=== PATIENT | female | born 1995 | race Caucasian/White ===

== ENCOUNTER 2020-01-24 12:27 | Outpatient (REF) | payer BC, MEDICAID, SELFPAY ==
--- NOTE | 2020-01-24 12:38 | XR_ITS ---
EXAMINATION: XR FOOT, LEFT CLINICAL INFORMATION: Fracture left calcaneus. Follow-up COMPARISON: Left heel 12/13/2019 TECHNIQUE: AP, lateral, and oblique views of the left foot. FINDINGS: Is diffuse osteopenia. The ankle mortise and subtalar joints are normal. There is a calcaneal heel fracture with cement augmentation and metallic plate and screws in satisfactory alignment. The soft tissues are normal. XR/XR foot LT min 3V IMPRESSION: Heeled calcaneal fracture stabilized with lateral metallic plate and screws, unchanged to previous study. There is significant diffuse osteopenia. No soft tissue swelling seen.
== END 2020-01-24 12:28 | disposition home or self-care (01) ==
LOC: HO.HOSX 12:27
PROVIDERS: Visit Provider Physician Assistant
DX: S92.002D Unspecified fracture of left calcaneus, subsequent encounter for fracture with routine healing (principal)
CPT/HCPCS: 73630

== ENCOUNTER → 2020-03-16 12:52 | Outpatient (BNVA) | payer BC, MEDICAID, SELFPAY | PROVIDERS: Visit Provider Orthopaedic Surgery | DX: Z76.89 Persons encountering health services in other specified circumstances (principal) ==

== ENCOUNTER 2020-04-22 15:00 | Outpatient (RCR) | payer BC, SELFPAY ==
--- NOTE | 2020-04-23 10:25 | MHC.PT.DC ---
[facility] [place] Office [place] Office [place] Office [address] Claudia Auguste [address] [phone] F: [phone] F: [phone] F: [phone] F: [phone] Physical Therapy Discharge Report Diagnosis: S/P ORIF for L calcaneum fracture Date of Surgery: 10/23/2019 Date of Evaluation: 12/16/19 Date of Discharge: 04/23/20 Treatments to Date: 23 Cancellations to Date: 2 No Shows to Date: 0 Discharge Status: Achieved Goals Improved Function Discharge Summary: Pt arrived on 04/22/20 with no new complaints. She has improved and is independent with all HEPs. Pt requested d/c today as she is staring a new job next week and will not be able to attend therapy. All exercises were reviewed with pt. Pt advised to return to therapy in case of difficulty with any ADLs and work activities. Electronically signed by: Chelo Butler DPT Please sign and return to therapist. Thank you for your referral.
== END 2020-04-23 10:25 | disposition other institution (70) ==
LOC: HO.PT 15:00
PROVIDERS: Visit Provider Physician Assistant
DX: S92.002D Unspecified fracture of left calcaneus, subsequent encounter for fracture with routine healing (principal)
CPT/HCPCS: 97014; 97110; 97116; 97140; 97530

== ENCOUNTER → 2020-05-25 13:41 | Outpatient (BNVA) | payer BC, MEDICAID, SELFPAY | PROVIDERS: Visit Provider Orthopaedic Surgery ==

== ENCOUNTER 2021-05-01 03:21 | Emergency (ER) | payer OTHER, MEDICAID, SELFPAY ==
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
[2021-05-01 03:24] VITALS: BP 130/80; PULSE 123; RESP 16; TEMP 36.8; O2SAT 96; BMI 22.4
[2021-05-01 04:30] VITALS: BP 113/75; PULSE 113; RESP 16; TEMP 36.2; O2SAT 98
[2021-05-01 06:20] VITALS: BP 113/70; PULSE 105; RESP 14; TEMP 36.8; O2SAT 98
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
[2021-05-01 08:00] VITALS: BP 107/65; PULSE 97; O2SAT 98
[2021-05-01] MEDS: Ibuprofen 800 MG TABLET PO (08:01)
== END 2021-05-01 08:21 | disposition home or self-care (01) ==
PROVIDERS: Emergency Provider Emergency Medicine
DX: S82.115A Nondisplaced fracture of left tibial spine, initial encounter for closed fracture (principal); X50.1XXA Overexertion from prolonged static or awkward postures, initial encounter; Y93.01 Activity, walking, marching and hiking; Y92.410 Unspecified street and highway as the place of occurrence of the external cause; Y99.9 Unspecified external cause status
CPT/HCPCS: 73562; 99284

== ENCOUNTER → 2021-05-03 09:46 | Outpatient (BNVA) | payer OTHER, MEDICAID, SELFPAY | PROVIDERS: Visit Provider Physician Assistant ==

== ENCOUNTER 2021-05-18 13:42 | Outpatient (REF) | payer OTHER, MEDICAID, SELFPAY ==
--- NOTE | ~2021-05-18 | CT_ITS ---
EXAMINATION: CT KNEE WITHOUT CONTRAST, LEFT CLINICAL INFORMATION: Tibial fracture. COMPARISON: Radiographs 05/01/2021 TECHNIQUE: A noncontrast CT of the left knee is performed with sagittal and coronal reformats. This CT examination was performed using dose optimization techniques as appropriate, variously including the following: *Automated exposure control *Adjustment of mA and/or kV according to patient size (this includes techniques or standardized protocols for targeted exams where dose is matched to indication/reason for exam; i.e. extremities or head) *Use of iterative reconstruction technique DLP: 176 mGy-cm FINDINGS: As demonstrated on the radiographs, there are several fracture lines along the tibial spines with minimal displacement. The location is consistent with avulsion by the anterior cruciate ligament. Better demonstrated on the CT is an impaction fracture involving the lateral tibial plateau. A coronal fracture line extends along the junction of the anterior one-third and posterior two-thirds, and a transverse fracture along the physeal scar extending to the posterior cortex where there is mild surface depression measuring 4-5 mm, and slight posterior displacement of posterior cortical fragments. A hairline fracture extends longitudinally along the posterior cortex an additional 1.5 cm. Additionally, there is a hairline fracture in the coronal plane bisecting the medial tibial plateau across the mid aspect, without surface depression or incongruity. There is a moderate joint effusion. CT/CT knee LT wo con IMPRESSION: Proximal tibial fractures, as detailed in the comments, including a slightly depressed impaction fracture at the posterior aspect of the lateral tibial plateau. Additionally, tibial spine fractures indicate avulsion at the anterior cruciate ligament insertion.
== END 2021-05-18 13:43 | disposition home or self-care (01) ==
LOC: HO.CT 13:42
PROVIDERS: Visit Provider Physician Assistant
DX: S82.142A Displaced bicondylar fracture of left tibia, initial encounter for closed fracture (principal)
CPT/HCPCS: 73700

== ENCOUNTER → 2021-05-24 13:39 | Outpatient (BNVA) | payer OTHER, MEDICAID, SELFPAY | PROVIDERS: Visit Provider Physician Assistant ==

== ENCOUNTER 2021-06-18 08:02 | Outpatient (REF) | payer OTHER, MEDICAID, SELFPAY ==
--- NOTE | ~2021-06-18 | XR_ITS ---
EXAMINATION: XR KNEE, LEFT CLINICAL INFORMATION: Pain COMPARISON: Previous x-ray and CT April 2021 TECHNIQUE: 2 views of the left knee. FINDINGS: The bones are osteopenic. There is increased horizontal sclerosis along the lateral posterior proximal tibia corresponding to fracture. Extension to the tibial spine is difficult to appreciate. No other fracture is seen. There is a small joint effusion decreased from previous exam. There is diffuse soft tissue swelling. XR/XR knee LT 2V IMPRESSION: Horizontal linear sclerosis of the posterior lateral corresponding to tibial fracture. Extension to the tibial spine is not well appreciated by x-ray. Osteopenia. Interval decrease in joint effusion. Diffuse soft tissue swelling.
== END 2021-06-18 08:03 | disposition home or self-care (01) ==
LOC: HO.HOSX 08:02
PROVIDERS: Visit Provider Physician Assistant
DX: S82.142D Displaced bicondylar fracture of left tibia, subsequent encounter for closed fracture with routine healing (principal); M25.562 Pain in left knee
CPT/HCPCS: 73560

== ENCOUNTER 2021-08-06 06:00 | Outpatient (REF) | payer OTHER, MEDICAID, SELFPAY ==
--- NOTE | ~2021-08-06 | XR_ITS ---
EXAMINATION: XR KNEE, LEFT CLINICAL INFORMATION: Pain left knee COMPARISON: None TECHNIQUE: Two views of the left knee. FINDINGS: There is loss of tricompartment joint space without periarticular spurring. No bony erosive changes. There are no loose body seen. There is moderate anterior soft tissue swelling. XR/XR knee LT 2V IMPRESSION: There is diffuse anterior knee superficial soft tissue swelling. No visible acute fracture or dislocation seen.
== END 2021-08-06 06:01 | disposition home or self-care (01) ==
LOC: HO.HOSX 06:00
PROVIDERS: Visit Provider Physician Assistant
DX: M25.562 Pain in left knee (principal); S92.002D Unspecified fracture of left calcaneus, subsequent encounter for fracture with routine healing; X58.XXXD Exposure to other specified factors, subsequent encounter; F17.210 Nicotine dependence, cigarettes, uncomplicated
CPT/HCPCS: 73560

== ENCOUNTER 2021-09-08 16:00 | Outpatient (RCR) | payer OTHER, MEDICAID, SELFPAY ==
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
--- NOTE | 2021-09-22 11:31 | MHC.PT.DC ---
[facility] [place] Office [place] Office [place] Office [address] Claudia Auguste [address] [phone] F: [phone] F: [phone] F: [phone] F: [phone] Physical Therapy Discharge Report Diagnosis: displaced bicondylar fx of L tibia Date of Surgery: Date of Evaluation: 07/14/21 Date of Discharge: 09/22/21 Treatments to Date: 12 Cancellations to Date: 0 No Shows to Date: 0 Discharge Status: Achieved Goals Improved Function Independent with HEP Discharge Summary: Appropriate for d/c secondary to meeting goals, I with HEP and improved functional mobility. She is planning on joining a gym as well. Electronically signed by: Ariella Peñaloza PT Please sign and return to therapist. Thank you for your referral.
== END 2021-09-22 11:31 | disposition home or self-care (01) ==
LOC: HO.PT 16:00
PROVIDERS: Visit Provider Physician Assistant
DX: S82.142A Displaced bicondylar fracture of left tibia, initial encounter for closed fracture (principal)
CPT/HCPCS: 97110; 97161; 97530

== ENCOUNTER 2021-11-20 12:30 | Emergency (ER) | payer OTHER, MEDICAID, SELFPAY ==
[2021-11-20 12:34] VITALS: BP 110/76; PULSE 72; RESP 15; TEMP 36.6; O2SAT 96; BMI 21.6
--- NOTE | 2021-11-20 12:58 | ED_ITS ---
HPI - Wound/Laceration General Chief Complaint: Wound/Laceration Stated Complaint: Mouth laceration Time Seen by Provider: 11/20/21 12:45 Source: patient Mode of arrival: ambulatory Limitations: no limitations History of Present Illness HPI narrative: Patient presents emergency department for evaluation of a laceration. She states that she slipped on the stairs striking the front of her mouth on to the stair. She reports that her lower to went into her upper lip causing a laceration. No active bleeding. No pain. She states that she was concerned about infection therefore she came to the emergency department. Denies loss of consciousness with this fall. No dizziness, neck pain, neck stiffness, headache, vision changes. Related Data Previous Rx's Medication Instructions Recorded ibuprofen 800 mg tablet 800 mg PO TID PRN for pain #90 tabs 06/16/20 oxycodone 5 mg capsule 5 mg PO Q8H PRN pain 7 days #21 05/07/21 caps Allergies Allergy/AdvReac Type Severity Reaction Status Date / Time No Known Allergies Allergy Verified 08/06/21 09:59 Review of Systems Review of Systems: Mouth: Positive laceration Yes all other systems are reviewed and are negative [facility] Past Medical History Attestation statement: The following information was validated with the patient. Source: old records reviewed Surgical History S/P foot surgery, left Family History Family History Father No problems noted. Mother No problems noted. Social History Social History Alcohol intake: current Patient Tobacco Use Status: Current everyday Tobacco user Substance Use Type: Marijuana Advance Directives: No Advance Directives Information Provided: No Current occupational status: employed Current occupation: warehouse, right handed Physical Exam Vital Signs: Vital Signs: Last Vital Signs Temp 97.8 F 11/20/21 12:34 Pulse 72 11/20/21 12:34 Resp 15 11/20/21 12:34 BP 110/76 11/20/21 12:34 Pulse Ox 96 11/20/21 12:34 O2 Del Method 11/20/21 12:34 BMI result Body Mass Index 21.6 Appearance: Alert.?Oriented to person, place and time. No acute distress.?Normal affect. Eyes: Pupils equal, round and reactive to light.? ENT: Pharynx normal.? Laceration to the left upper lip mucosa, no active bleeding, does not go entirely through the lip. ? Neck: Normal inspection.? Neck supple.??No midline cervical spine tenderness, step-offs, deformities CVS: Heart sounds normal. Normal heart rate and rhythm.? Pulses normal.?? Respiratory: No respiratory distress.? Lung sounds clear to auscultation bilaterally?? Abdomen: Soft and non-tender. Skin: Skin warm and dry.? Normal skin color.? Extremities: No lower extremity edema.? Neuro: Moves all extremities spontaneously. Sensation intact bilaterally. No motor deficits Ambulates with normal steady gait. Course Course Course Narrative: Patient is a 26-year-old male who presents emergency department for evaluation of a laceration to the oral mucosa of her upper lip. She had no loss of consciousness or significant head injury to suggest requiring head CT, very low concern for ICH/SAH. At this time no signs or symptoms of infection. Advised of saltwater mouth rinses, antiseptic mouthwash as tolerated, Discussed worrisome signs and symptoms that she should be re-evaluated for, reviewed signs of infection, advised outpatient follow-up with her primary care provider as needed. MDM - Wound/Laceration Medical Records Attestation: I reviewed the patient's medical records. Discharge Plan Discharge Clinical Impression: Laceration of mouth Patient Disposition: Home, Self-Care Instructions: Laceration (ED) Additional Instructions: Rinse mouth multiple times a day with warm salt water. You may use mouthwash as tolerated. If you develop increased pain, redness, swelling, drainage/pus, fevers, or chills this should be re-evaluated as these may be signs of infection. Please follow-up with your primary care provider as needed. Return to the emergency department with any new or worsening symptoms or concerns. Prescriptions: No Action ibuprofen 800 mg tablet 800 mg PO TID PRN (Reason: for pain) Qty: 90 0RF oxycodone 5 mg capsule 5 mg PO Q8H PRN (Reason: pain) 7 Days Qty: 21 0RF Rx Instructions: partial filling upon request
== END 2021-11-20 13:15 | disposition home or self-care (01) ==
PROVIDERS: Emergency Provider Emergency Medicine
DX: S01.511A Laceration without foreign body of lip, initial encounter (principal); W10.8XXA Fall (on) (from) other stairs and steps, initial encounter; Y93.9 Activity, unspecified; Y92.039 Unspecified place in apartment as the place of occurrence of the external cause; Y99.9 Unspecified external cause status; F17.200 Nicotine dependence, unspecified, uncomplicated; F12.90 Cannabis use, unspecified, uncomplicated
CPT/HCPCS: 99282

== ENCOUNTER 2022-03-14 20:24 | Day surgery (SDC) | payer OTHER, MEDICAID, SELFPAY ==
--- NOTE | ~2022-03-14 | US_ITS ---
EXAMINATION: US OBSTETRICAL ULTRASOUND CLINICAL INFORMATION: products of conception COMPARISON: None. TECHNIQUE: Transabdominal and endovaginal scanning performed. FINDINGS: The anteverted uterus present measuring 9.8 x 6.0 x 6.6 cm. The endometrium is markedly heterogeneous and thickened measuring 3.9 cm. Retained products of conception are likely given the bulk of abnormality present. The right ovary measures 2.4 x 1.5 x 2.1 cm for a volume of 4.0 mL and appears normal. Left ovary measures 1.9 x 1.4 x 1.9 cm for a volume of 3.0 mL and appears normal No free fluid is seen. US/US OB pelvic and transvaginal IMPRESSION: Mildly heterogeneous thickened endometrium. Retained products of conception cannot be excluded.
--- NOTE | 2022-03-14 20:34 | ED_ITS ---
HPI - Female Genitourinary General Chief complaint: Vaginal Bleeding <Mai Weston CNP - Last Filed: 03/14/22 20:39> Stated complaint: heavy vaginal bleeding missed ab d+c on 03/11 <Mai Weston CNP - Last Filed: 03/14/22 20:39> Time Seen by Provider: 03/14/22 23:31 <Mai Weston CNP - Last Filed: 03/14/22 20:39> Source: patient <Shana Geiger MD - Last Filed: 03/15/22 06:40> Mode of arrival: ambulatory <Shana Geiger MD - Last Filed: 03/15/22 06:40> History of Present Illness HPI Narrative: 26-year-old female who [facility] and states that she was feeling fine until today and then she began developing significant lower abdominal cramping associated with subjective fevers and significant increase in vaginal bleeding that she quantifies as 10-12 pads and states that she feels like it has somewhat slowed down but she is still feeling significant lower abdominal/pelvic discomfort and states she is also experiencing some dysuria as well. <Shana Geiger MD - Last Filed: 03/15/22 06:40> Related Data Home medications: Previous Rx's Medication Instructions Recorded ibuprofen 800 mg tablet 800 mg PO TID PRN for pain #90 tabs 06/16/20 oxycodone 5 mg capsule 5 mg PO Q8H PRN pain 7 days #21 05/07/21 caps <Mai Weston CNP - Last Filed: 03/14/22 20:39> Allergies/Adverse reactions: Allergies Allergy/AdvReac Type Severity Reaction Status Date / Time No Known Allergies Allergy Verified 08/06/21 09:59 <Mai Weston CNP - Last Filed: 03/14/22 20:39> Review of Systems Review of Systems: Pertinent positives and negatives as stated in HPI 10 point review of systems is otherwise negative. <Shana Geiger MD - Last Filed: 03/15/22 06:40> PMFSH Past Medical History Source: nursing notes reviewed <Shana Geiger MD - Last Filed: 03/15/22 06:40> Surgical History: Surgical History S/P foot surgery, left <Mai Weston CNP - Last Filed: 03/14/22 20:39> Family History Family History: Family History Father No problems noted. Mother No problems noted. <Mai Weston CNP - Last Filed: 03/14/22 20:39> Social History Social History: Social History Alcohol intake: current Patient Tobacco Use Status: Current everyday Tobacco user Substance Use Type: Marijuana Advance Directives: No Current occupational status: employed Current occupation: warehouse, right handed <Mai Weston CNP - Last Filed: 03/14/22 20:39> Physical Exam Vital Signs: Vital Signs: Last Vital Signs Temp 98.6 F 03/15/22 05:59 Pulse 93 03/15/22 05:59 Resp 17 03/15/22 05:59 BP 116/58 L 03/15/22 05:59 Pulse Ox 99 03/15/22 05:59 O2 Del Method 03/15/22 05:59 BMI result Body Mass Index 21.6 <Mai Weston CNP - Last Filed: 03/14/22 20:39> Vital Signs: Last Vital Signs Temp 98.6 F 03/15/22 05:59 Pulse 93 03/15/22 05:59 Resp 17 03/15/22 05:59 BP 116/58 L 03/15/22 05:59 Pulse Ox 99 03/15/22 05:59 O2 Del Method 03/15/22 05:59 BMI result Body Mass Index 21.6 VITAL SIGNS: Reviewed. GENERAL: Well developed, well nourished, in no acute distress. HEAD: Normocephalic/atraumatic EYES: PERRLA, EOMI EARS: Ext canals without abnormality OROPHARYNX: no oral lesions noted, posterior pharynx clear LUNGS: Normal breath sounds. No adventitious sounds or accessory muscle use. SpO2<99> CARDIOVASCULAR: Regular rate and rhythm without noted murmurs ABDOMEN: Soft, discomfort in the lower abdomen on palpation without rebound, non-distended with bowel sounds. MUSCULOSKELETAL: No tenderness, deformities, or effusions noted on gross inspection. EXTREMITIES: No cyanosis, clubbing or edema. SKIN: Inspection of the skin reveals no rashes NEUROLOGIC: Alert and oriented x 4. Strength and sensation to light touch were grossly intact x 4. PELVIC EXAM: Cosmetologist Apprentice Desiree, dark thin blood noted in the posterior vaginal vault without clots, when patient asked to cough there is no acute ?gush? blood from cervical os. <Shana Geiger MD - Last Filed: 03/15/22 06:40> Course Course Course Narrative: RME: Patient is a 26-year-old female who presents emergency department for evaluation of heavy vaginal bleeding. states previously 8 weeks , [facility], reports soaking through 3 pads every hour, with clotting. Also complaining abdominal pain and back pain, tactile fever. She has appears fatigued. Vital signs are stable. Ambulatory with a steady gait. No apparent respiratory distress. Plan: Labs, hCG, ultrasound to evaluate for retained POC <Mai Weston CNP - Last Filed: 03/14/22 20:39> RME: Patient is a 26-year-old female who presents emergency depart ment for evaluation of heavy vaginal bleeding. states previously 8 weeks , [facility]2022, reports soaking through 3 pads every hour, with clotting. Also complaining abdominal pain and back pain, tactile fever. She has appears fatigued. Vital signs are stable. Ambulatory with a steady gait. No apparent respiratory distress. Plan: Labs, hCG, ultrasound to evaluate for retained POC I reviewed all laboratory workup which does show a significant drop in hemoglobin when compared to prior, however the significance of this is unclear as I do not know the amount of bleeding may have been lost during the D and C on Monday. HCG is still 6225 and ultrasound most suspicious for retained products of conception. <Shana Geiger MD - Last Filed: 03/15/22 06:40> Reevaluation(s) Reevaluation #1: I consulted with gynecology, Dr. Wagner and provided all information to include HCG and hemoglobin as well as ultrasound findings. I ordered an IV with 1 L of IV fluids. Dr. Wagner recommends a pelvic exam to ascertain whether activ e vaginal bleeding. And possible repeat CBC at 04:00/0 500 if no active vaginal bleeding. <Shana Geiger MD - Last Filed: 03/15/22 06:40> Time: 00:57 <Shana Geiger MD - Last Filed: 03/15/22 06:40> Reevaluation #2: Dr. Wagner equal currently recommending CBC and will obtain at 04:00, also recommends that any change in vital signs or increase in heavy bleeding to inform him. <Shana Geiger MD - Last Filed: 03/15/22 06:40> Time: 01:57 <Shana Geiger MD - Last Filed: 03/15/22 06:40> Reevaluation #3: I had further discussions with Dr. Wagner regarding the follow-up H&H and he states to keep the patient NPO and he will evaluate her at 06:00. <Shana Geiger MD - Last Filed: 03/15/22 06:40> Time: 04:29 <Shana Geiger MD - Last Filed: 03/15/22 06:40> Additional Reevaluation(s): 0600: Dr. Wagner evaluated the patient and has decided to take the patient to the OR for suction D&C. <Shana Geiger MD - Last Filed: 03/15/22 06:40> Medications Administered Discontinued Medications Generic Name Dose Route Start Last Admin Trade Name Freq PRN Reason Stop Dose Admin Sodium Chloride 1,000 mls @ 999 mls/hr 03/15/22 01:00 03/15/22 02:24 Ns IV 03/15/22 02:00 Infused .Q1H1M LEATHA Infusion Piperacillin Sod/Tazobactam 50 mls @ 100 mls/hr 03/15/22 02:18 03/15/22 03:39 Sod 3.375 gm/ Sodium Chloride IV 03/15/22 02:47 Infused ONCE ONE Infusion <Mai Weston CNP - Last Filed: 03/14/22 20:39> Medications Administered Discontinued Medications Generic Name Dose Route Start Last Admin Trade Name Freq PRN Reason Stop Dose Admin Sodium Chloride 1,000 mls @ 999 mls/hr 03/15/22 01:00 03/15/22 02:24 Ns IV 03/15/22 02:00 Infused .Q1H1M LEATHA Infusion Piperacillin Sod/Tazobactam 50 mls @ 100 mls/hr 03/15/22 02:18 03/15/22 03:39 Sod 3.375 gm/ Sodium Chloride IV 03/15/22 02:47 Infused ONCE ONE Infusion <Shana Geiger MD - Last Filed: 03/15/22 06:40> Medical Decision Making Lab Data Result Diagrams: : 03/15/22 04:09 03/14/22 21:29 <Mai Weston CNP - Last Filed: 03/14/22 20:39> Labs: Lab Results 03/14/22 03/14/22 03/15/22 Range/Units 21:29 21:29 00:21 WBC 12.0 H (4.8-10.8) X10*3/uL RBC 3.42 L (4.20-5.50) X10*6/uL Hgb 11.0 L (12.0-16.0) g/dl Hct 32.4 L (37.0-47.0) % MCV 94.7 (80.0-98.0) fL MCH 32.2 (27.0-33.0) pg MCHC 34.0 (31.0-35.0) g/dl RDW 12.5 (11.0-16.0) % Plt Count 200 (160-400) X10*3/uL MPV 9.6 (9.4-12.3) fL Immature Gran % (Auto) 0.3 (0.0-0.4) % Neut % (Auto) 79.3 H (45-73) % Lymph % (Auto) 13.3 L (20-40) % Schleicher % (Auto) 5.7 (2-11) % Eos % (Auto) 1.1 (0-4) % Baso % (Auto) 0.3 (0-2) % Lymph # (Auto) 1.6 (1.2-4.9) X10*3/uL Schleicher # (Auto) 0.7 (0.1-1.2) X10*3/uL Eos # (Auto) 0.1 (0.0-0.4) X10*3/uL Baso # (Auto) 0.0 (0.0-0.2) X10*3/uL Abs Immat Gran (auto) 0.04 H (0.00-0.03) X10*3/uL Absolute Neuts (auto) 9.5 H (2.0-8.3) x10*3/uL Absolute Nucleated RBC 0.000 (0.0-0.012) X10*3/uL Nucleated RBC % (auto) 0.0 (0.0-0.2) /100WBC Sodium 139 (135-145) mmol/L Potassium 4.0 (3.3-5.1) mmol/L Chloride 107 (96-108) mmol/L Carbon Dioxide 24 (22-29) mmol/L Anion Gap 12 (12-20) BUN 10 (9-16) mg/dL Creatinine 0.62 (0.5-1.4) mg/dL Estim Creat Clear Calc 122.6 Estimated GFR > 60 Random Glucose 98 (60-115) mg/dL Lactic Acid (0.5-2.0) mmol/L Calcium 9.2 (8.4-10.2) mg/dL Total Bilirubin 0.4 (0.0-1.0) mg/dL AST 12 (5-31) U/L ALT 6 (0-31) U/L Alkaline Phosphatase 81 (39-117) U/L Total Protein 6.3 L (6.5-8.0) g/dL Albumin 4.2 (3.5-5.0) g/dL Beta HCG, Quant 6225 mIU/mL Urine Color RED Urine Appearance Cloudy Urine pH 8.0 (5.0-9.0) Ur Specific [place] 1.020 (1.005-1.025) Urine Protein 100 (2+) H (Neg-Trace) mg/dL Urine Glucose (UA) Negative (Negative) mg/dL Urine Ketones Trace (Negative) mg/dL Urine Blood Large (3+) H (Negative) Urine Nitrite Positive H (Negative) Ur Leukocyte Esterase Moderate (2+) H (Negative) Urine RBC >20 H (0-2) /HPF Urine WBC >50 H (0-5) /HPF Ur Squamous Epith Cells 3-5 (0-2) /HPF Urine Bacteria 1+ (None Seen) Hyaline Casts 0-2 (0-2) /LPF Blood Type Antibody Screen 03/15/22 03/15/22 03/15/22 Range/Units 01:03 01:38 04:09 WBC (4.8-10.8) X10*3/uL RBC (4.20-5.50) X10*6/uL Hgb 10.2 L (12.0-16.0) g/dl Hct 30.2 L (37.0-47.0) % MCV (80.0-98.0) fL MCH (27.0-33.0) pg MCHC (31.0-35.0) g/dl RDW (11.0-16.0) % Plt Count (160-400) X10*3/uL MPV (9.4-12.3) fL Immature Gran % (Auto) (0.0-0.4) % Neut % (Auto) (45-73) % Lymph % (Auto) (20-40) % Schleicher % (Auto) (2-11) % Eos % (Auto) (0-4) % Baso % (Auto) (0-2) % Lymph # (Auto) (1.2-4.9) X10*3/uL Schleicher # (Auto) (0.1-1.2) X10*3/uL Eos # (Auto) (0.0-0.4) X10*3/uL Baso # (Auto) (0.0-0.2) X10*3/uL Abs Immat Gran (auto) (0.00-0.03) X10*3/uL Absolute Neuts (auto) (2.0-8.3) x10*3/uL Absolute Nucleated RBC (0.0-0.012) X10*3/uL Nucleated RBC % (auto) (0.0-0.2) /100WBC Sodium (135-145) mmol/L Potassium (3.3-5.1) mmol/L Chloride (96-108) mmol/L Carbon Dioxide (22-29) mmol/L Anion Gap (12-20) BUN (9-16) mg/dL Creatinine (0.5-1.4) mg/dL Estim Creat Clear Calc Estimated GFR Random Glucose (60-115) mg/dL Lactic Acid 0.7 (0.5-2.0) mmol/L Calcium (8.4-10.2) mg/dL Total Bilirubin (0.0-1.0) mg/dL AST (5-31) U/L ALT (0-31) U/L Alkaline Phosphatase (39-117) U/L Total Protein (6.5-8.0) g/dL Albumin (3.5-5.0) g/dL Beta HCG, Quant mIU/mL Urine Color Urine Appearance Urine pH (5.0-9.0) Ur Specific [place] (1.005-1.025) Urine Protein (Neg-Trace) mg/dL Urine Glucose (UA) (Negative) mg/dL Urine Ketones (Negative) mg/dL Urine Blood (Negative) Urine Nitrite (Negative) Ur Leukocyte Esterase (Negative) Urine RBC (0-2) /HPF Urine WBC (0-5) /HPF Ur Squamous Epith Cells (0-2) /HPF Urine Bacteria (None Seen) Hyaline Casts (0-2) /LPF Blood Type O Positive Antibody Screen NEGATIVE <Mai Weston CNP - Last Filed: 03/14/22 20:39> Lab Results 03/14/22 03/14/22 03/15/22 Range/Units 21:29 21:29 00:21 WBC 12.0 H (4.8-10.8) X10*3/uL RBC 3.42 L (4.20-5.50) X10*6/uL Hgb 11.0 L (12.0-16.0) g/dl Hct 32.4 L (37.0-47.0) % MCV 94.7 (80.0-98.0) fL MCH 32.2 (27.0-33.0) pg MCHC 34.0 (31.0-35.0) g/dl RDW 12.5 (11.0-16.0) % Plt Count 200 (160-400) X10*3/uL MPV 9.6 (9.4-12.3) fL Immature Gran % (Auto) 0.3 (0.0-0.4) % Neut % (Auto) 79.3 H (45-73) % Lymph % (Auto) 13.3 L (20-40) % Schleicher % (Auto) 5.7 (2-11) % Eos % (Auto) 1.1 (0-4) % Baso % (Auto) 0.3 (0-2) % Lymph # (Auto) 1.6 (1.2-4.9) X10*3/uL Schleicher # (Auto) 0.7 (0.1-1.2) X10*3/uL Eos # (Auto) 0.1 (0.0-0.4) X10*3/uL Baso # (Auto) 0.0 (0.0-0.2) X10*3/uL Abs Immat Gran (auto) 0.04 H (0.00-0.03) X10*3/uL Absolute Neuts (auto) 9.5 H (2.0-8.3) x10*3/uL Absolute Nucleated RBC 0.000 (0.0-0.012) X10*3/uL Nucleated RBC % (auto) 0.0 (0.0-0.2) /100WBC Sodium 139 (135-145) mmol/L Potassium 4.0 (3.3-5.1) mmol/L Chloride 107 (96-108) mmol/L Carbon Dioxide 24 (22-29) mmol/L Anion Gap 12 (12-20) BUN 10 (9-16) mg/dL Creatinine 0.62 (0.5-1.4) mg/dL Estim Creat Clear Calc 122.6 Estimated GFR > 60 Random Glucose 98 (60-115) mg/dL Lactic Acid (0.5-2.0) mmol/L Calcium 9.2 (8.4-10.2) mg/dL Total Bilirubin 0.4 (0.0-1.0) mg/dL AST 12 (5-31) U/L ALT 6 (0-31) U/L Alkaline Phosphatase 81 (39-117) U/L Total Protein 6.3 L (6.5-8.0) g/dL Albumin 4.2 (3.5-5.0) g/dL Beta HCG, Quant 6225 mIU/mL Urine Color RED Urine Appearance Cloudy Urine pH 8.0 (5.0-9.0) Ur Specific [place] 1.020 (1.005-1.025) Urine Protein 100 (2+) H (Neg-Trace) mg/dL Urine Glucose (UA) Negative (Negative) mg/dL Urine Ketones Trace (Negative) mg/dL Urine Blood Large (3+) H (Negative) Urine Nitrite Positive H (Negative) Ur Leukocyte Esterase Moderate (2+) H (Negative) Urine RBC >20 H (0-2) /HPF Urine WBC >50 H (0-5) /HPF Ur Squamous Epith Cells 3-5 (0-2) /HPF Urine Bacteria 1+ (None Seen) Hyaline Casts 0-2 (0-2) /LPF Blood Type Antibody Screen 03/15/22 03/15/22 03/15/22 Range/Units 01:03 01:38 04:09 WBC (4.8-10.8) X10*3/uL RBC (4.20-5.50) X10*6/uL Hgb 10.2 L (12.0-16.0) g/dl Hct 30.2 L (37.0-47.0) % MCV (80.0-98.0) fL MCH (27.0-33.0) pg MCHC (31.0-35.0) g/dl RDW (11.0-16.0) % Plt Count (160-400) X10*3/uL MPV (9.4-12.3) fL Immature Gran % (Auto) (0.0-0.4) % Neut % (Auto) (45-73) % Lymph % (Auto) (20-40) % Schleicher % (Auto) (2-11) % Eos % (Auto) (0-4) % Baso % (Auto) (0-2) % Lymph # (Auto) (1.2-4.9) X10*3/uL Schleicher # (Auto) (0.1-1.2) X10*3/uL Eos # (Auto) (0.0-0.4) X10*3/uL Baso # (Auto) (0.0-0.2) X10*3/uL Abs Immat Gran (auto) (0.00-0.03) X10*3/uL Absolute Neuts (auto) (2.0-8.3) x10*3/uL Absolute Nucleated RBC (0.0-0.012) X10*3/uL Nucleated RBC % (auto) (0.0-0.2) /100WBC Sodium (135-145) mmol/L Potassium (3.3-5.1) mmol/L Chloride (96-108) mmol/L Carbon Dioxide (22-29) mmol/L Anion Gap (12-20) BUN (9-16) mg/dL Creatinine (0.5-1.4) mg/dL Estim Creat Clear Calc Estimated GFR Random Glucose (60-115) mg/dL Lactic Acid 0.7 (0.5-2.0) mmol/L Calcium (8.4-10.2) mg/dL Total Bilirubin (0.0-1.0) mg/dL AST (5-31) U/L ALT (0-31) U/L Alkaline Phosphatase (39-117) U/L Total Protein (6.5-8.0) g/dL Albumin (3.5-5.0) g/dL Beta HCG, Quant mIU/mL Urine Color Urine Appearance Urine pH (5.0-9.0) Ur Specific [place] (1.005-1.025) Urine Protein (Neg-Trace) mg/dL Urine Glucose (UA) (Negative) mg/dL Urine Ketones (Negative) mg/dL Urine Blood (Negative) Urine Nitrite (Negative) Ur Leukocyte Esterase (Negative) Urine RBC (0-2) /HPF Urine WBC (0-5) /HPF Ur Squamous Epith Cells (0-2) /HPF Urine Bacteria (None Seen) Hyaline Casts (0-2) /LPF Blood Type O Positive Antibody Screen NEGATIVE <Shana Geiger MD - Last Filed: 03/15/22 06:40> Critical Care Time Critical Care Time Critical Care Time: Yes <Shana Geiger MD - Last Filed: 03/15/22 06:40> Total Critical Care Time: 45 <Shana Geiger MD - Last Filed: 03/15/22 06:40> Attestation: I personally attest to this time spent taking care of the patient. <Shana Geiger MD - Last Filed: 03/15/22 06:40> Discharge Plan Discharge Clinical Impression: Retained products of conception following , Vaginal bleeding <Mai Weston CNP - Last Filed: 03/14/22 20:39> Patient Disposition: Admitted As Inpatient <Mai Weston CNP - Last Filed: 03/14/22 20:39> Prescriptions: No Action ibuprofen 800 mg tablet 800 mg PO TID PRN (Reason: for pain) Qty: 90 0RF oxycodone 5 mg capsule 5 mg PO Q8H PRN (Reason: pain) 7 Days Qty: 21 0RF Rx Instructions: partial filling upon request <Mai Weston CNP - Last Filed: 03/14/22 20:39>
[2022-03-14 20:35] VITALS: BP 108/69; PULSE 78; RESP 18; TEMP 36.4; O2SAT 98; BMI 21.6
[2022-03-14 21:43] LABS: MANUAL DIFF FLAG NO
[2022-03-14 21:44] LABS: Basophils Percent Auto 0.3 % (0-2); Eosinophils Absolute Auto 0.1 X10*3/uL (0.0-0.4); Eosinophils Percent Auto 1.1 % (0-4); Hematocrit 32.4 % (37.0-47.0); Imm Gran Abs Auto 0.04 X10*3/uL (0.00-0.03); Imm Gran Pct Auto 0.3 % (0.0-0.4); Lymphocytes Absolute Auto 1.6 X10*3/uL (1.2-4.9); Lymphocytes Percent Auto 13.3 % (20-40); Mean Corpuscular Hemoglobin 32.2 pg (27.0-33.0); Mean Corpuscular Volume 94.7 fL (80.0-98.0); Mean Platelet Volume 9.6 fL (9.4-12.3); Monocytes Absolute Auto 0.7 X10*3/uL (0.1-1.2); Monocytes Percent Auto 5.7 % (2-11); Neutrophils Absolute Auto 9.5 x10*3/uL (2.0-8.3); Neutrophils Percent Auto 79.3 % (45-73); Platelet Count 200 X10*3/uL (160-400); Red Blood Count 3.42 X10*6/uL (4.20-5.50); Red Cell Distribution Width 12.5 % (11.0-16.0)
[2022-03-14 22:01] LABS: Alanine Aminotransferase 6 U/L (0-31); Albumin Level 4.2 g/dL (3.5-5.0); Alkaline Phosphatase 81 U/L (39-117); Anion Gap 12 (12-20); Aspartate Amino Transferase 12 U/L (5-31); Bilirubin Total 0.4 mg/dL (0.0-1.0); Blood Urea Nitrogen 10 mg/dL (9-16); Calcium 9.2 mg/dL (8.4-10.2); Carbon Dioxide 24 mmol/L (22-29); Chloride 107 mmol/L (96-108); Creatinine Clr Calc Pharmacy 122.6; Estimated Glomerular Filt Rate > 60; Glucose Random 98 mg/dL (60-115); Sodium 139 mmol/L (135-145); Total Protein 6.3 g/dL (6.5-8.0)
[2022-03-14 23:23] VITALS: BP 110/68; PULSE 97; RESP 17; TEMP 37; O2SAT 99
[2022-03-15] VITALS (9 sets, daily range): BP systolic 108–121; BP diastolic 54–73; PULSE 82–102; RESP 16–27; TEMP 36.3–37.2; O2SAT 95–100
[2022-03-15 00:19] LABS: HCG Quantitative 6225 mIU/mL
[2022-03-15 00:38] LABS: Appearance Urine Cloudy; Color Urine RED; Glucose Urine UA Negative (Negative); Leukocyte Esterase Urine Moderate (2+) (Negative); Nitrite Urine Positive (Negative); UMIC TRIGGER UACC YES; Urine Blood Large (3+) (Negative); Urine Ketones Trace mg/dL (Negative); Urine Protein 100 (2+) mg/dL (Neg-Trace)
[2022-03-15 00:41] LABS: Hyaline Casts Urine 0-2 /LPF (0-2); RBC Urine >20 /HPF (0-2); UACC Culture Trigger YES; WBC Urine >50 /HPF (0-5)
[2022-03-15 00:45] LABS: Bacteria Urine 1+ (None Seen)
[2022-03-15] MEDS: 0.9 % Sodium Chloride 1,000 ML 999 ML IV (01:12)
--- NOTE | 2022-03-15 01:18 | PM.GYNCN ---
[employer] - CN: HPI Data of Consult Consult date: 03/15/22 Primary Care Provider: Unknown Physician Consult Narrative Narrative: I was consulted on Rosalina Peres who is a 26 year old female presented to the emergency room with increase in vaginal bleeding postop day 5 from [facility] associated with lower abdominal cramping; the patient was treated with medical termination at 8 weeks of gestation 4 days prior, but did not have any vaginal bleeding or passage of products of conception so she underwent suction D&C on 03/11. Blood type is O-positive. hCG 6225 In addition the patient has been having dysuria cc:: CC: OB [facility] Past Medical History Medical History (Updated 03/15/22 @ 08:51 by Chip Wagner MD) Family History Family History Father No problems noted. Mother No problems noted. Surgical History Surgical History (Updated 03/15/22 @ 07:13 by Diane Belle) H/O hand surgery S/P foot surgery, left Social History Social History (Updated 03/15/22 @ 08:43 by Bailee Murcia MD) Alcohol intake: current Alcohol intake frequency: a few times a month Patient Tobacco Use Status: Current everyday Tobacco user Use of substances other than those prescribed or required for medical reasons: Yes Substance Use Type: Marijuana Substance Use Frequency: Daily Last Used Substance: Hours (ago) Are you DNR?: No Advance Directives: No Current occupational status: employed Current occupation: warehouse, right handed Meds Allergies Allergy/AdvReac Type Severity Reaction Status Date / Time No Known Allergies Allergy Verified 03/15/22 07:13 Active Medications: Current Medications Sodium Chloride (Ns) 1,000 mls @ 999 mls/hr IV .Q1H1M LEATHA Stop: 03/15/22 02:00 Last Admin: 03/15/22 01:12 Dose: 999 mls/hr [employer] Physical Exam Vitals Vital signs: Temp Pulse Resp BP Pulse Ox O2 Del Method 98.6 F 97 17 110/68 99 03/14/22 23:23 03/14/22 23:23 03/14/22 23:23 03/14/22 23:23 03/14/22 23:23 03/14/22 23:23 BMI result Body Mass Index 21.6 Abdomen Auscultation/Inspection/Palpation: Normal bowel sounds, Soft, Non-distended and No tenderness Female Genitalia (Pelvic) Bladder/Urethra: Normal meatus Vulva: No lesions Cervix: Grossly normal Uterus: Normal size and Nontender Adnexa/Parametria: Adnexal Tenderness: None, Adnexal Mass: None, Parametrial Tenderness: None and Parametrial Mass: None Additional Comments: Blood per vagina, open cervix [employer] - Results Labs CBC & Chem 7: 03/15/22 04:09 03/14/22 21:29 Labs: Short CBC 03/14/22 Range/Units 21:29 WBC 12.0 H (4.8-10.8) X10*3/uL Hgb 11.0 L (12.0-16.0) g/dl Hct 32.4 L (37.0-47.0) % Plt Count 200 (160-400) X10*3/uL BMP 03/14/22 21:29 Sodium 139 Potassium 4.0 Chloride 107 Carbon Dioxide 24 BUN 10 Creatinine 0.62 Calcium 9.2 Liver Function 03/14/22 Range/Units 21:29 Total Bilirubin 0.4 (0.0-1.0) mg/dL AST 12 (5-31) U/L ALT 6 (0-31) U/L Alkaline Phosphatase 81 (39-117) U/L Albumin 4.2 (3.5-5.0) g/dL Urine 03/15/22 Range/Units 00:21 Urine Color RED Urine Appearance Cloudy Urine pH 8.0 (5.0-9.0) Ur Specific [place] 1.020 (1.005-1.025) Urine Protein 100 (2+) H (Neg-Trace) mg/dL Urine Glucose (UA) Negative (Negative) mg/dL Imaging Venous US: Radiologist's impression: ITS Impressions Pelvic/Transvag US 03/14/22 21:20 IMPRESSION: Mildly heterogeneous thickened endometrium. Retained products of conception cannot be excluded. Assessment and Plan (1) Retained products of conception following : Status: Acute GC and chlamydia with BV panel and Trichomonas collected. Discussed with the patient the result of the ultrasound showing thickened endometrium , retained products of conception cannot be excluded, in addition explained to the patient her clinical situation with vaginal bleeding and pelvic cramping, hemoglobin drop , all pointing towards possibility of retained products of conception; the options of the treatment were discussed with the patient including medical treatment , suction D&C, all pros, cons, risks and benefits were discussed with the patient and the patient the decided to go ahead with Suction D&C. so a more detailed discussion about the procedure was carried on with the patient including the technique, risks including but not limited to : bleeding, infection, uterine perforation, injury to blood vessels, bowels, ureters, bladder, possible need for blood transfusion with all its risks ( HIV, Hep b or C, anaphylaxis reactions), possible need for laparoscopy, laparotomy, or hysterectomy, possible , thromboembolic events, possibility of a negative impact on future fertility because of scar tissue development inside the uterus; alternatives of this option were discussed with the patient including but not limited to, medical termination of or doing nothing. The patient decided to go ahead with Suction D&C and signed the consent. All questions answered, the patient verbalized understanding and agreed with the plan. Doxycycline 200 mg p.o. preop given to the patient. Ultrasound notified. Type and screen sent. Instructions given the patient to schedule a 2 week postoperative appointment. This note was generated with a voice recognition program. Some errors may have been overlooked during the review of this note. Sometimes these errors may affect the content or meaning of a given sentence. (2) UTI (urinary tract infection): Status: Acute Urine culture sent will treat with Macrobid 100 mg p.o. b.i.d. for 7 days. Instructions given to patient to call in case of fever above 100.4, flank pain, nausea or vomiting or any other concerns Plan 00:59 reviewed [facility] texts and called the emergency room and discussed the case on the phone with Dr. Vásquez. Recommended the following: Perform a Pelvic exam in an effort to evaluate the amount of vaginal bleeding; if there is evidence of active vaginal bleeding to let me know, in order to call the OR team/anesthesia and proceed with suction D&C immediately. If there is no evidence of active vaginal bleeding on pelvic exam, to keep the patient NPO and for observation for few hours and repeat H&H , if there is any increase in vaginal bleeding, change in vital signs or significant drop in H&H during the observation period, will proceed with suction D&C then. Otherwise will re-evaluate in a.m. Time Spent With Patient Time: Total time managing care of this patient today ____ minutes.
[2022-03-15 01:29] LABS: Lactic Acid 0.7 mmol/L (0.5-2.0)
--- NOTE | 2022-03-15 01:38 | PC.NURSE ---
patient refusing to be poked another time for blood cultures. she is agreeable to one set being pulled off her IV. MD Geiger made awrae.
[2022-03-15] MEDS: Piperacillin Sodium/Tazobactam 3.375 GM in 0.9 % Sodium Chloride 50 ML IV (02:37)
[2022-03-15 04:14] LABS: Hematocrit 30.2 % (37.0-47.0); Hemoglobin 10.2 g/dl (12.0-16.0)
--- NOTE | 2022-03-15 06:00 | MHC.EDTECH ---
pt is resting a little teary eyed, nervous bout everything going on, i help her when it was time to draw hold her hand she cries when blood needs to be taken, a little comfort for her and a little encouragement to help her through it.. she appreciated it alot.. her vitals were taken she is just relaxing now
--- NOTE | 2022-03-15 06:20 | PC.NURSE ---
MD Wagner bedside for exam
[2022-03-15] MEDS: Doxycycline Monohydrate 100 MG CAPSULE 200 MG PO (07:00)
--- NOTE | 2022-03-15 07:14 | PHA.MEDREC ---
Pharmacy Consult ? Medication Reconciliation Pharmacy has completed the medication reconciliation.
--- NOTE | 2022-03-15 07:23 | P.CONAN_ITS ---
HPI - Anesthesia Eval Consult details Narrative: 26yo female patient for suction, D&C PMFSH Active Problems Active Problems: All Active Problems (Updated 03/15/22 @ 07:13 by Diane Belle) Calcaneus fracture, left (Acute) Fracture of left calcaneus with routine healing (Acute) Otitis media (Acute) Tibial plateau fracture, left (Acute) Vaginal bleeding (Acute) Retained products of conception following (Acute) Vaginal bleeding (Acute) Past Medical History Medical History (Updated 03/15/22 @ 07:13 by Diane Belle) Family History Family History Father No problems noted. Mother No problems noted. Family history of problems with anesthesia: No Surgical History Surgical History (Updated 03/15/22 @ 07:13 by Diane Belle) H/O hand surgery S/P foot surgery, left History of Problems with Anesthesia: No Social History Social History (Updated 03/15/22 @ 08:43 by Bailee Murcia MD) Alcohol intake: current Alcohol intake frequency: a few times a month Patient Tobacco Use Status: Current everyday Tobacco user Use of substances other than those prescribed or required for medical reasons: Yes Substance Use Type: Marijuana Substance Use Frequency: Daily Last Used Substance: Hours (ago) Are you DNR?: No Advance Directives: No Current occupational status: employed Current occupation: [employer], right handed [employer] Allergies Allergy/AdvReac Type Severity Reaction Status Date / Time No Known Allergies Allergy Verified 03/15/22 07:13 Exam Exam Date and Time: March 15, 2022 0723 Height,Weight and Vital Signs: Height 5 ft 5 in Weight 58.967 kg Last Vital Signs Temp 98.6 F 03/15/22 05:59 Pulse 93 03/15/22 05:59 Resp 17 03/15/22 05:59 BP 116/58 L 03/15/22 05:59 Pulse Ox 99 03/15/22 05:59 O2 Del Method 03/15/22 05:59 Vital Signs Temp Pulse Resp BP Pulse Ox O2 Del Method 03/15/22 07:38 97.3 F 88 16 111/65 98 Room Air 03/15/22 05:59 98.6 F 93 17 116/58 L 99 Room Air 03/15/22 04:22 98.3 F 89 17 115/54 L 98 Room Air 03/15/22 01:57 97.6 F 82 18 110/69 95 Room Air 03/14/22 23:23 98.6 F 97 17 110/68 99 Room Air 03/14/22 20:35 97.6 F 78 18 108/69 98 Room Air Pertinent Lab Results Pertinent Lab Results: Laboratory Tests 03/14/22 03/14/22 03/15/22 21:29 21:29 00:21 WBC 12.0 H RBC 3.42 L Hgb 11.0 L Hct 32.4 L MCV 94.7 MCH 32.2 MCHC 34.0 RDW 12.5 Plt Count 200 MPV 9.6 Immature Gran % (Auto) 0.3 Neut % (Auto) 79.3 H Lymph % (Auto) 13.3 L [place] % (Auto) 5.7 Eos % (Auto) 1.1 Baso % (Auto) 0.3 Lymph # (Auto) 1.6 [place] # (Auto) 0.7 Eos # (Auto) 0.1 Baso # (Auto) 0.0 Abs Immat Gran (auto) 0.04 H Absolute Neuts (auto) 9.5 H Absolute Nucleated RBC 0.000 Nucleated RBC % (auto) 0.0 Sodium 139 Potassium 4.0 Chloride 107 Carbon Dioxide 24 Anion Gap 12 BUN 10 Creatinine 0.62 Estim Creat Clear Calc 122.6 Estimated GFR > 60 Random Glucose 98 Lactic Acid Calcium 9.2 Total Bilirubin 0.4 AST 12 ALT 6 Alkaline Phosphatase 81 Total Protein 6.3 L Albumin 4.2 Beta HCG, Quant 6225 Urine Color RED Urine Appearance Cloudy Urine pH 8.0 Ur Specific [place] 1.020 Urine Protein 100 (2+) H Urine Glucose (UA) Negative Urine Ketones Trace Urine Blood Large (3+) H Urine Nitrite Positive H Ur Leukocyte Esterase Moderate (2+) H Urine RBC >20 H Urine WBC >50 H Ur Squamous Epith Cells 3-5 Urine Bacteria 1+ Hyaline Casts 0-2 Blood Type Antibody Screen 03/15/22 03/15/22 03/15/22 01:03 01:38 04:09 WBC RBC Hgb 10.2 L Hct 30.2 L MCV MCH MCHC RDW Plt Count MPV Immature Gran % (Auto) Neut % (Auto) Lymph % (Auto) [place] % (Auto) Eos % (Auto) Baso % (Auto) Lymph # (Auto) [place] # (Auto) Eos # (Auto) Baso # (Auto) Abs Immat Gran (auto) Absolute Neuts (auto) Absolute Nucleated RBC Nucleated RBC % (auto) Sodium Potassium Chloride Carbon Dioxide Anion Gap BUN Creatinine Estim Creat Clear Calc Estimated GFR Random Glucose Lactic Acid 0.7 Calcium Total Bilirubin AST ALT Alkaline Phosphatase Total Protein Albumin Beta HCG, Quant Urine Color Urine Appearance Urine pH Ur Specific [place] Urine Protein Urine Glucose (UA) Urine Ketones Urine Blood Urine Nitrite Ur Leukocyte Esterase Urine RBC Urine WBC Ur Squamous Epith Cells Urine Bacteria Hyaline Casts Blood Type O Positive Antibody Screen NEGATIVE Airway Mallampati Class: II TM Dist: >3cm Neck ROM: Full Loose/Missing/Broken Teeth: No (Denies broken, loose, missing teeth) Heart: RRR Lungs: CTAB Assessment and Plan Assessment Anesthesia Assessment: Anesthesia Plan Discussed and Chart Reviewed Final Anesthetic Review Family History of Problems with Anesthesia: No History of Problems with Anesthesia: No NPO: Yes ASA Class: II and Emergency Final Preanesthetic Review: No Changes in Pt Med Stat, Meds/Allgs Chart Reviewed, Consent Obtained/Reviewed and Anes Risks/Benef Reviewed Patient Risk: Intermediate Procedure Risk: Low Assessment/Block/Sedation in SS: Assess/Block/Sedation-SS Anesthetic Plan Anesthetic Plan: GA Disposition: Standard PACU
[2022-03-15] MEDS: ondansetron HCL 4 MG/2 ML VIAL IVPUSH (07:31)
[2022-03-15] MEDS: Metoclopramide HCl 10 MG/2 ML VIAL IVPUSH (07:32)
[2022-03-15] MEDS: Lactated Ringers 1,000 ML 100 ML IVCONT (07:34)
--- NOTE | 2022-03-15 08:51 | P.BOP_ITS ---
Brief Operative Note Date of Service: 03/15/22 Pre-op diagnosis: Retained products of conception Post-op diagnosis: same Procedure: Suction D&C under ultrasound guidance Surgeon: Chip Wagner MD Anesthesia: GLMA Was an High Heel Builder used for this Procedure?: No Estimated blood loss (mL): 100 Pathology: other (Retained Products of conception) Condition: stable Disposition: PACU
--- NOTE | 2022-03-15 08:52 | P.OP_ITS ---
Operative Note Operative Note Date of Service: 03/15/22 Narrative: Preop diagnosis: Retained products of conception Operation: suction D and C with ultrasound guidance Postop diagnosis: The same EBL: 100 cc Anesthesia: GLMA Rail Car Repair Carman: None Pathology: Retained Products of conception Procedure: The patient was put in a dorsal distal mid position was scrubbed and draped in the usual sterile fashion. A sterile speculum was inserted inside the patient's vagina the anterior lip of the cervix was grasped with single-tooth tenaculum the cervix was dilated up to 7 mm. Under ultrasonographic guidance flexible 7. Suction tip was introduced inside the patient ran cavity till the fundus was hit then turning the suction 360 degrees around products of conception was sucked out toward the uterine cavity. The suction tip was taken out of the patient uterine cavity sharp curettings was followed in 4 quadrants of the uterus till a gritty feeling was felt. The suction tip was reintroduced under ultrasonographic guidance and intrauterine blood was sucked. The suction tip was taken out. Single-tooth tenaculum was removed hemostasis assured using pressure. The patient tolerated the procedure well and was transferred to the PACU in a stable condition.
[2022-03-15 09:17] LABS: BV Int Neg Control Negative (Negative); BV Int Pos Control Positive (Positive); CT PCR NOT DETECTED (Not Detect.); NG PCR NOT DETECTED (Not Detect.)
== END 2022-03-15 10:25 | disposition home or self-care (01) ==
LOC: HO.ED 03-15 08:22 → HO.SSS 03-15 13:44
PROVIDERS: Nurse Practitioner Family; Emergency Provider Student in an Organized Health Care Education/Training Program; Visit Provider Obstetrics & Gynecology
PROC: (CPT 59812; principal; 2022-03-15 08:00)
DX: O03.1 Delayed or excessive hemorrhage following incomplete spontaneous abortion (principal); Z3A.08 8 weeks gestation of pregnancy; O99.331 Smoking (tobacco) complicating pregnancy, first trimester; O99.321 Drug use complicating pregnancy, first trimester; O23.41 Unspecified infection of urinary tract in pregnancy, first trimester; F17.210 Nicotine dependence, cigarettes, uncomplicated; F12.90 Cannabis use, unspecified, uncomplicated
CPT/HCPCS: 59812; 36415; 76801; 76815; 76817; 80053; 81001; 83605; 84702; 85014; 85018; 85025; 86850; 86900; 86901; 87040; 87086; 87480; 87491; 87510; 87591; 87660; 88305; 96361; 96365; 99285; J0330; J1100; J2250; J2405; J2543; J2765; J3010

== ENCOUNTER 2022-03-30 13:41 | Outpatient (REF) | payer OTHER, MEDICAID, SELFPAY ==
[2022-03-30 14:57] LABS: Hematocrit 35.7 % (37.0-47.0); Mean Corpuscular HGB Conc 33.6 g/dl (31.0-35.0); Mean Corpuscular Hemoglobin 31.9 pg (27.0-33.0); Mean Corpuscular Volume 94.9 fL (80.0-98.0); Mean Platelet Volume 10.2 fL (9.4-12.3); Platelet Count 318 X10*3/uL (160-400); Red Blood Count 3.76 X10*6/uL (4.20-5.50); Red Cell Distribution Width 12.4 % (11.0-16.0); White Blood Count 13.5 X10*3/uL (4.8-10.8)
[2022-03-30 15:25] LABS: HCG Quantitative 89 mIU/mL
== END 2022-03-30 13:42 | disposition home or self-care (01) ==
LOC: HO.LAB 13:41
PROVIDERS: Visit Provider Obstetrics & Gynecology
DX: O03.4 Incomplete spontaneous abortion without complication (principal)
CPT/HCPCS: 36415; 84702; 85027

== ENCOUNTER 2022-06-10 15:37 | Outpatient (REF) | payer MEDICAID, SELFPAY ==
[2022-06-10 16:27] LABS: Influenza A PCR NEGATIVE (Negative); Influenza B PCR NEGATIVE (Negative); Resp Syncy Virus RNA Qual PCR NEGATIVE (Negative); SARS COV2 PCR INHOUSE NEGATIVE (Negative)
== END 2022-06-10 15:38 | disposition home or self-care (01) ==
LOC: HO.LNP 15:37
PROVIDERS: Visit Provider Nurse Practitioner Family
DX: Z20.822 Contact with and (suspected) exposure to COVID-19 (principal); R09.89 Other specified symptoms and signs involving the circulatory and respiratory systems
CPT/HCPCS: 0241U

== ENCOUNTER 2022-11-20 07:23 | Emergency (ER) | payer OTHER, SELFPAY ==
--- NOTE | ~2022-11-20 | XR_ITS ---
EXAMINATION: XR CHEST CLINICAL INFORMATION: Chest pain COMPARISON: None available. TECHNIQUE: 2 views of the chest were obtained. FINDINGS: No significant abnormality is noted involving the heart, lungs, mediastinum, bony thorax or soft tissues. XR/XR chest 2V IMPRESSION: Normal chest x-ray.
[2022-11-20 07:40] VITALS: BP 118/74; PULSE 100; RESP 19; TEMP 36.1; O2SAT 98; BMI 21.3
--- NOTE | 2022-11-20 08:08 | ED.URI ---
HPI - URI/Sore Throat General Chief Complaint: Upper Respiratory Symptoms Stated Complaint: Diff breathing/Dizziness Time Seen by Provider: 11/20/22 07:57 Source: patient Mode of arrival: ambulatory Limitations: no limitations History of Present Illness HPI Narrative: This is a 27 years old female presented to the emergency department with 1 month history of cough congestion. Denies any fever chills. She is a smoker. MD elicited complaint: cough Onset (ago): month(s) (1) Consistency: constant Severity: moderate Able to tolerate fluids by mouth: Yes Exacerbating factors: nothing Relieving factors: nothing Associated symptoms: denies other symptoms Related Data Previous Rx's Medication Instructions Recorded albuterol sulfate 90 mcg/actuation 2 puff inhalation Q4-6H PRN 06/10/22 aerosol inhaler shortness of breath or wheezing #6.7 grams benzonatate 100 mg capsule 100 mg PO TID PRN cough #20 caps 06/10/22 cefuroxime axetil 500 mg tablet 500 mg PO Q12H 7 days #14 tabs 06/10/22 doxycycline monohydrate 100 mg 100 mg PO BID 7 days #14 caps 06/10/22 capsule fluconazole 150 mg tablet 150 mg PO Q3D 2 doses #2 tabs 06/10/22 (Diflucan) prednisone 20 mg tablet 40 mg PO DAILY 5 days #10 tabs 06/10/22 albuterol sulfate 90 mcg/actuation 1 inh inhalation QID PRN shortness 11/20/22 aerosol inhaler (Proventil HFA) of breath or wheezing #6.7 grams doxycycline monohydrate 100 mg 100 mg PO BID #14 caps 11/20/22 capsule (Monodox) Allergies Allergy/AdvReac Type Severity Reaction Status Date / Time No Known Allergies Allergy Verified 11/20/22 07:40 Review of Systems Constitutional: Constitutional: Reports no additional constitutional complaints ENT: Reports system reviewed and no additional complaints, except as documented Cardiovascular: Cardiovascular: Reports no additional cardiovascular complaints PMFSH Past Medical History Medical History Surgical History H/O hand surgery S/P foot surgery, left Family History Family History Father No problems noted. Mother No problems noted. Social History Social History Alcohol intake: current Alcohol intake frequency: a few times a month Patient Tobacco Use Status: Never used Tobacco Substance Use Type: Marijuana Advance Directives: No Advance Directives Information Provided: No Current occupational status: employed Current occupation: warehouse, right handed Physical Exam Vital Signs: Vital Signs: Last Vital Signs Temp 97 F 11/20/22 07:40 Pulse 100 11/20/22 07:40 Resp 19 11/20/22 07:40 BP 118/74 11/20/22 07:40 Pulse Ox 98 11/20/22 07:40 O2 Del Method Room Air 11/20/22 07:40 BMI result Body Mass Index 21.3 Const: General: cooperative Nutritional Appearance: average body habitus and well nourished Orientation/consciousness: oriented to person, oriented to place, oriented to time and patient oriented x3 Limitations: no limitations HEENT: Head: Yes normal to inspection General nose exam: Normal external nose present Face and sinus: Yes normal facial exam Mouth: Normal oral and palatal mucosa present Teeth and gingiva: dentition normal Throat: Yes posterior oropharynx normal Neck: Neck: Yes normal visual inspection and Yes full ROM Chest: Chest palpation & inspection: normal inspection of the chest Resp: Effort & Inspection: normal respiratory effort Auscultation: rhonchi Cardio: Jugular venous distension: no JVD Rate: regular rate Rhythm: regular rhythm GI: Inspection: Yes normal to inspection Palpation (GI): Soft to palpation, not firm, nontender and no guarding Skin: General skin exam: no rashes or lesions noted Neuro: General: oriented to person, oriented to place, oriented to time and patient oriented x3 Medical Decision Making Medical Decision Making MDM Narrative: 27 years old with 1 month history of cough congestion, it is reasonable to do chest x-ray Differential Diagnosis Differential Diagnoses: The differential diagnosis associated with the presentation includes Pneumonia/bronchitis/asthma Admission/Observation Consideration of admission/observation: Escalation of care including admission/observation considered Independent Interpretation I performed an independent interpretation of an: Plain X-Ray Interpretation: normal Radiology Impression Discussion of test interpretation with radiology: I have reviewed the radiologist's reading. Radiologist Impression: Ordering Physician: Tucker Reddy MD Date of Service: 11/20/22 Procedure(s): XR chest 2V Accession Number(s): [id number] cc: Tucker Reddy MD~ EXAMINATION: XR CHEST CLINICAL INFORMATION: Chest pain COMPARISON: None available. TECHNIQUE: 2 views of the chest were obtained. FINDINGS: No significant abnormality is noted involving the heart, lungs, mediastinum, bony thorax or soft tissues. XR/XR chest 2V IMPRESSION: Normal chest x-ray. Dictated By: Mono Rosas MD Signed By: <Electronically signed by Mono Rosas MD in OV> 11/20/22844 DD/ 7 Prescription Management I considered prescription management with: Antibiotic Discharge Plan Discharge Clinical Impression: Bronchitis Patient Disposition: Home, Self-Care Instructions: Acute Bronchitis (ED) Additional Instructions: Follow-up with your primary care physician return to the emergency room if you are worse any concern Prescriptions: New albuterol sulfate [Proventil HFA] 90 mcg/actuation HFA aerosol inhaler 1 inh inhalation QID PRN (Reason: shortness of breath or wheezing) Qty: 6.7 0RF doxycycline monohydrate [Monodox] 100 mg capsule 100 mg PO BID Qty: 14 0RF No Action doxycycline monohydrate 100 mg capsule 100 mg PO BID 7 Days Qty: 14 0RF cefuroxime axetil 500 mg tablet 500 mg PO Q12H 7 Days Qty: 14 0RF fluconazole [Diflucan] 150 mg tablet 150 mg PO Q3D Qty: 2 1RF benzonatate 100 mg capsule 100 mg PO TID PRN (Reason: cough) Qty: 20 0RF albuterol sulfate 90 mcg/actuation HFA aerosol inhaler 2 puff inhalation Q4-6H PRN (Reason: shortness of breath or wheezing) Qty: 6.7 2RF Rx Instructions: May dispense medication equivalent accepted by patient's insurance prednisone 20 mg tablet 40 mg PO DAILY 5 Days Qty: 10 0RF Interventions: ED Discharge Assessment Last Done: 11/20/22 09:07 Discharge Date/Time: 11/20/22 09:07
== END 2022-11-20 09:07 | disposition home or self-care (01) ==
PROVIDERS: Emergency Provider Emergency Medicine
DX: J40 Bronchitis, not specified as acute or chronic (principal); R05.9 Cough, unspecified
CPT/HCPCS: 71046; 99282; 99283

== ENCOUNTER 2023-03-14 15:57 | Emergency (ER) | payer OTHER, SELFPAY ==
--- NOTE | ~2023-03-14 | XR_ITS ---
EXAMINATION: XR CHEST CLINICAL INFORMATION: Pain COMPARISON: Previous chest x-ray October 2022 TECHNIQUE: 2 views of the chest were obtained. FINDINGS: Well-inflated lungs. No significant abnormality is noted involving the heart, lungs, mediastinum, bony thorax or soft tissues. XR/XR chest 2V IMPRESSION: Well-inflated lungs. No evidence for acute disease in the chest.
[2023-03-14 16:25] VITALS: BP 140/97; PULSE 99; RESP 20; TEMP 36.7; O2SAT 99; BMI 22.6
--- NOTE | 2023-03-14 16:25 | ED_ITS ---
HPI - General Adult General Chief complaint: General Medical Stated complaint: cramping, pt states pneumonia Time Seen by Provider: 03/14/23 18:51 Source: patient, RN notes reviewed and old records reviewed Mode of arrival: ambulatory Limitations: no limitations History of Present Illness HPI narrative: 27-year-old female presents for evaluation of chest pain is worse with inspiration. She reports that she is currently taking doxycycline for a diagnosis of pneumonia She has taken antibiotics for the last 5 days She states that today she developed chest pain with inspiration Denies any fevers, chills Patient reports that her son tested positive for RSV yesterday and would like to be tested Denies any recent travel Related Data Previous Rx's Medication Instructions Recorded albuterol sulfate 90 mcg/actuation 2 puff inhalation Q4-6H PRN 06/10/22 aerosol inhaler shortness of breath or wheezing #6.7 grams benzonatate 100 mg capsule 100 mg PO TID PRN cough #20 caps 06/10/22 cefuroxime axetil 500 mg tablet 500 mg PO Q12H 7 days #14 tabs 06/10/22 doxycycline monohydrate 100 mg 100 mg PO BID 7 days #14 caps 06/10/22 capsule fluconazole 150 mg tablet 150 mg PO Q3D 2 doses #2 tabs 06/10/22 (Diflucan) prednisone 20 mg tablet 40 mg (2 x 20 mg) PO DAILY 5 days 06/10/22 #10 tabs albuterol sulfate 90 mcg/actuation 1 inh inhalation QID PRN shortness 11/20/22 aerosol inhaler (Proventil HFA) of breath or wheezing #6.7 grams doxycycline monohydrate 100 mg 100 mg PO BID #14 caps 11/20/22 capsule (Monodox) Allergies Allergy/AdvReac Type Severity Reaction Status Date / Time No Known Allergies Allergy Verified 11/20/22 07:40 Review of Systems 2 Constitutional: Constitutional: Denies body ache(s), Denies chills and Denies fever(s) Cardiovascular: Cardiovascular: Reports chest pain and Reports dyspnea Respiratory: Respiratory: Denies cough, Reports pain on inspiration, Reports pain with cough, Reports dyspnea and Denies wheezing Gastrointestinal: Gastrointestinal: Denies abdominal pain, Denies nausea and Denies vomiting Musculoskeletal: Musculoskeletal: Denies back pain Integumentary/Breasts: Skin/Breast: Denies rash Allergic/Immunologic: Allergic/Immunologic: Denies wheezing PMFSH Past Medical History Medical History Surgical History H/O hand surgery S/P foot surgery, left Family History Family History Father No problems noted. Mother No problems noted. Social History Social History Alcohol intake: current Alcohol intake frequency: a few times a month Patient Tobacco Use Status: Never used Tobacco Substance Use Type: Marijuana Advance Directives: No Advance Directives Information Provided: No Current occupational status: employed Current occupation: [employer], right handed Physical Exam ED Vital Signs: Vital Signs - 24 hr 03/14/23 16:25 Temperature 98.1 F Pulse Rate 99 Respiratory Rate 20 Blood Pressure 140/97 H Pulse Oximetry 99 Oxygen Delivery Method Room Air BMI result Body Mass Index 22.6 Const General: healthy appearing, comfortable, no acute distress, alert and awake Nutritional Appearance: well nourished Orientation/consciousness: patient oriented x3 HENMT Head: Yes normocephalic and Yes atraumatic Eyes Eyelids: Yes eyelids normal Conjunctivae: conjunctivae normal Sclerae: sclerae normal Corneas: corneas normal Pupils: Equal, round and reactive pupils present EOM: EOMs intact bilaterally Neck Neck: Yes full ROM Resp Effort & Inspection: normal respiratory effort, able to speak in complete sentences, no audible wheezes and not labored Auscultation: clear to auscultation bilaterally Cardio Rate: regular rate Rhythm: regular rhythm Skin General skin exam: elasticity normal Neuro General: patient oriented x3 Cranial nerves: Yes Equal, round and reactive pupils present and Yes Bilaterally intact EOM present Cognition (Neuro): normal cognition Extrem Other: Moving all extremities well without any obvious deformities Course Course Course Narrative: RME- 27 year old female presents for evaluation of chest pain with inspiration. Patient reports that she is currently being treated with doxycycline for pneumonia. Her son tested positive for RSV yesterday. Plan for cardiac workup, chest x-ray and viral swab Medical Decision Making Medical Decision Making MDM Narrative: 19-year-old female presents for evaluation of chest pain is worse with inspiration. Her vital signs are stable within normal limits. I repeat a chest x-ray as she is being treated for pneumonia which is clear. She tested negative for influenza, COVID, RSV. Her labs within normal limits. She is stable for discharge at this time. She will continue her antibiotics. She was given return precautions Differential Diagnosis Differential Diagnoses: The differential diagnosis associated with the presentation includes Bronchitis COVID-19 Pneumonia RSV Upper respiratory infection Chest pain ACS less likely Admission/Observation Consideration of admission/observation: Escalation of care including admission/observation considered Patient ruled out for ACS and therefore did require admission but was considered Lab Data MDM Lab Attestation statement: I reviewed the patient's lab results. No leukocytosis or anemia. No significant electrolyte abnormalities. The patient's chloride is just normal at 109. Normal renal function, troponin undetectable 03/14/23 17:01 03/14/23 17:01 Labs: Lab Results 03/14/23 Range/Units 17:01 WBC 8.5 (4.8-10.8) X10*3/uL RBC 4.25 (4.20-5.50) X10*6/uL Hgb 13.4 (12.0-16.0) g/dl Hct 38.7 (37.0-47.0) % MCV 91.1 (80.0-98.0) fL MCH 31.5 (27.0-33.0) pg MCHC 34.6 (31.0-35.0) g/dl RDW 12.0 (11.0-16.0) % Plt Count 301 (160-400) X10*3/uL MPV 9.7 (9.4-12.3) fL Immature Gran % (Auto) 0.1 (0.0-0.4) % Neut % (Auto) 57.2 (45-73) % Lymph % (Auto) 35.2 (20-40) % [place] % (Auto) 4.8 (2-11) % Eos % (Auto) 2.1 (0-4) % Baso % (Auto) 0.6 (0-2) % Lymph # (Auto) 3.0 (1.2-4.9) X10*3/uL [place] # (Auto) 0.4 (0.1-1.2) X10*3/uL Eos # (Auto) 0.2 (0.0-0.4) X10*3/uL Baso # (Auto) 0.1 (0.0-0.2) X10*3/uL Abs Immat Gran (auto) 0.01 (0.00-0.03) X10*3/uL Absolute Neuts (auto) 4.9 (2.0-8.3) x10*3/uL Absolute Nucleated RBC 0.000 (0.0-0.012) X10*3/uL Nucleated RBC % (auto) 0.0 (0.0-0.2) /100WBC PT 12.8 (11.1-13.3) SEC INR 1.1 (0.9-1.1) APTT 30.0 (26.0-36.4) SEC Sodium 143 (135-145) mmol/L Potassium 3.5 (3.3-5.1) mmol/L Chloride 109 H (96-108) mmol/L Carbon Dioxide 24 (22-29) mmol/L Anion Gap 14 (12-20) BUN 11 (9-16) mg/dL Creatinine 0.65 (0.5-1.4) mg/dL Estim Creat Clear Calc 115.9 Estimated GFR > 60 Random Glucose 91 (60-115) mg/dL Calcium 10.0 D (8.4-10.2) mg/dL Total Bilirubin 0.3 (0.0-1.0) mg/dL AST 17 (5-31) U/L ALT 14 (0-31) U/L Alkaline Phosphatase 83 (39-117) U/L Troponin I High Sens < 2.7 (<3.5-17.0) ng/L Total Protein 7.5 (6.5-8.0) g/dL Albumin 4.6 (3.5-5.0) g/dL Lipase 22 (8-78) U/L Beta HCG, Quant < 2 mIU/mL Influenza Type A (PCR) NEGATIVE (Negative) Influenza Type B (PCR) NEGATIVE (Negative) RSV RNA Qual (PCR) NEGATIVE (Negative) SARS-CoV-2 RNA (RT-PCR) NEGATIVE (Negative) Independent Interpretation I performed an independent interpretation of an: EKG (Normal sinus rhythm with sinus arrhythmia, rate of 78 beats per minute. No ectopy or ischemic changes) and Plain X-Ray (No infiltrates) Radiology Impression Discussion of test interpretation with radiology: I have reviewed the radiologist's reading. (Well inflated lungs. No evidence for acute disease in the chest) Discharge Plan Discharge Clinical Impression: Chest pain, Cough Patient Disposition: Home, Self-Care Instructions: Chest Pain (ED) Additional Instructions: Your workup in the emergency department today was reassuring. Your chest x-ray was clear. Your EKG was reassuring. Your blood work was normal You did test negative for RSV, COVID, influenza Your symptoms are still likely related to a virus I do recommend finishing her antibiotics for the last 2 days Prescriptions: No Action albuterol sulfate [Proventil HFA] 90 mcg/actuation HFA aerosol inhaler 1 inh inhalation QID PRN (Reason: shortness of breath or wheezing) Qty: 6.7 0RF doxycycline monohydrate [Monodox] 100 mg capsule 100 mg PO BID Qty: 14 0RF doxycycline monohydrate 100 mg capsule 100 mg PO BID 7 Days Qty: 14 0RF cefuroxime axetil 500 mg tablet 500 mg PO Q12H 7 Days Qty: 14 0RF fluconazole [Diflucan] 150 mg tablet 150 mg PO Q3D Qty: 2 1RF benzonatate 100 mg capsule 100 mg PO TID PRN (Reason: cough) Qty: 20 0RF albuterol sulfate 90 mcg/actuation HFA aerosol inhaler 2 puff inhalation Q4-6H PRN (Reason: shortness of breath or wheezing) Qty: 6.7 2RF Rx Instructions: May dispense medication equivalent accepted by patient's insurance prednisone 20 mg tablet 40 mg PO DAILY 5 Days Qty: 10 0RF
--- NOTE | 2023-03-14 16:26 | ECG_ITS ---
Test Reason : CHEST PAIN Blood Pressure : / mmHG Vent. Rate : 078 BPM Atrial Rate : 078 BPM P-R Int : 128 ms QRS Dur : 084 ms QT Int : 376 ms P-R-T Axes : 082 070 052 degrees QTc Int : 428 ms Normal sinus rhythm with sinus arrhythmia Normal ECG When compared with ECG of 07-JAN-2018 14:44, No significant change was found Referred By: Cristóbal Crews Electronically Signed By:MARIJA EATON MD
[2023-03-14 17:09] LABS: MANUAL DIFF FLAG NO
[2023-03-14 17:14] LABS: Basophils Absolute Auto 0.1 X10*3/uL (0.0-0.2); Basophils Percent Auto 0.6 % (0-2); Eosinophils Absolute Auto 0.2 X10*3/uL (0.0-0.4); Eosinophils Percent Auto 2.1 % (0-4); Hematocrit 38.7 % (37.0-47.0); Hemoglobin 13.4 g/dl (12.0-16.0); Imm Gran Abs Auto 0.01 X10*3/uL (0.00-0.03); Imm Gran Pct Auto 0.1 % (0.0-0.4); Lymphocytes Percent Auto 35.2 % (20-40); Mean Corpuscular HGB Conc 34.6 g/dl (31.0-35.0); Mean Corpuscular Hemoglobin 31.5 pg (27.0-33.0); Mean Corpuscular Volume 91.1 fL (80.0-98.0); Mean Platelet Volume 9.7 fL (9.4-12.3); Monocytes Absolute Auto 0.4 X10*3/uL (0.1-1.2); Monocytes Percent Auto 4.8 % (2-11); Neutrophils Absolute Auto 4.9 x10*3/uL (2.0-8.3); Neutrophils Percent Auto 57.2 % (45-73); Platelet Count 301 X10*3/uL (160-400); Red Blood Count 4.25 X10*6/uL (4.20-5.50); White Blood Count 8.5 X10*3/uL (4.8-10.8)
[2023-03-14 17:20] LABS: INTERNATIONAL NORM RATIO 1.1 (0.9-1.1); Prothrombin Time 12.8 SEC (11.1-13.3)
[2023-03-14 17:36] LABS: Alanine Aminotransferase 14 U/L (0-31); Albumin Level 4.6 g/dL (3.5-5.0); Alkaline Phosphatase 83 U/L (39-117); Anion Gap 14 (12-20); Aspartate Amino Transferase 17 U/L (5-31); Bilirubin Total 0.3 mg/dL (0.0-1.0); Blood Urea Nitrogen 11 mg/dL (9-16); Carbon Dioxide 24 mmol/L (22-29); Chloride 109 mmol/L (96-108); Creatinine Clr Calc Pharmacy 115.9; Estimated Glomerular Filt Rate > 60; Glucose Random 91 mg/dL (60-115); Lipase 22 U/L (8-78); Potassium 3.5 mmol/L (3.3-5.1); Sodium 143 mmol/L (135-145); Total Protein 7.5 g/dL (6.5-8.0)
[2023-03-14 17:42] LABS: Troponin-I High Sensitivity < 2.7 ng/L (<3.5-17.0)
[2023-03-14 17:44] LABS: HCG Quantitative < 2 mIU/mL
[2023-03-14 17:55] LABS: Influenza A PCR NEGATIVE (Negative); Influenza B PCR NEGATIVE (Negative); Resp Syncy Virus RNA Qual PCR NEGATIVE (Negative); SARS COV2 PCR INHOUSE NEGATIVE (Negative)
== END 2023-03-14 18:54 | disposition home or self-care (01) ==
PROVIDERS: Physician Assistant; Emergency Provider Internal Medicine
DX: R07.89 Other chest pain (principal); R25.2 Cramp and spasm; R05.9 Cough, unspecified; Z20.822 Contact with and (suspected) exposure to COVID-19; Z20.828 Contact with and (suspected) exposure to other viral communicable diseases; Z79.899 Other long term (current) drug therapy
CPT/HCPCS: 0241U; 71046; 80053; 83690; 84484; 84702; 85025; 85610; 85730; 93005; 99282; 99283

== ENCOUNTER → 2023-03-14 16:26 | Outpatient (BNV) | payer OTHER, SELFPAY | PROVIDERS: Emergency Provider Internal Medicine; Visit Provider Internal Medicine Cardiovascular Disease | DX: R07.9 Chest pain, unspecified (principal) | CPT/HCPCS: 93010 ==

== ENCOUNTER 2024-01-02 06:00 | Emergency (ER) | payer OTHER, SELFPAY ==
[2024-01-02] VITALS (13 sets, daily range): BP systolic 105–137; BP diastolic 50–89; PULSE 85–162; RESP 14–92; TEMP 36.9–37.2; O2SAT 92–98; BMI 21.9
--- NOTE | ~2024-01-02 | XR_ITS ---
EXAMINATION: XR CHEST CLINICAL INFORMATION: Productive cough COMPARISON: Prior chest radiograph 03/14/2023 TECHNIQUE: 2 views of the chest were obtained. FINDINGS: Lungs grossly clear. Chronic linear markings left base. Heart and pulmonary vessels normal. No pleural effusions. XR/XR chest 2V IMPRESSION: No active disease. Electronically signed by: Sheng Mccauley MD 01/02/2024 08:11 AM EDT RP
--- NOTE | 2024-01-02 06:31 | ED_ITS ---
HPI - General Adult General Chief complaint: Upper Respiratory Symptoms Stated complaint: possible ammonia Time Seen by Provider: 01/02/24 06:30 Source: patient Mode of arrival: ambulatory Limitations: no limitations History of Present Illness ED Provider: Hai DESOUZA narrative: Patient is a 28-year-old female presenting to the emergency department with complaint of shortness of breath, wheezing, cough and fever. Symptoms began 3 weeks ago, then improved slightly last week, but worsened again on Satuday. Tmax yesterday was 100.3. She became very winded walking up to her second floor apartment. Family is sick with similar symptoms. Denies abdominal pain, nausea, vomiting. Patient did vomit once in the ED with IV attempt, states that was due to severe anxiety about needles. Denies chest pain or palpitations. Has been using her son's inhalers with little relief. complaint: cough, wheezing Onset (ago): week(s) Location: chest Associated symptoms: cough, fever/chills, headaches and shortness of breath Related Data Previous Rx's ?Medication ?Instructions ?Recorded albuterol sulfate 90 mcg/actuation 2 puff inhalation Q4-6H PRN 06/10/22 aerosol inhaler shortness of breath or wheezing #6.7 grams benzonatate 100 mg capsule 100 mg PO TID PRN cough #20 caps 06/10/22 cefuroxime axetil 500 mg tablet 500 mg PO Q12H 7 days #14 tabs 06/10/22 doxycycline monohydrate 100 mg 100 mg PO BID 7 days #14 caps 06/10/22 capsule fluconazole 150 mg tablet 150 mg PO Q3D 2 doses #2 tabs 06/10/22 (Diflucan) prednisone 20 mg tablet 40 mg (2 x 20 mg) PO DAILY 5 days 06/10/22 #10 tabs albuterol sulfate 90 mcg/actuation 1 inh inhalation QID PRN shortness 11/20/22 aerosol inhaler (Proventil HFA) of breath or wheezing #6.7 grams doxycycline monohydrate 100 mg 100 mg PO BID #14 caps 11/20/22 capsule (Monodox) albuterol sulfate 90 mcg/actuation 2 puff inhalation Q4-6H PRN 01/02/24 aerosol inhaler shortness of breath or wheezing #6.7 grams azithromycin 250 mg tablet See Rx Instructions PO .COMPLEX #6 01/02/24 tabs prednisone 20 mg tablet 40 mg (2 x 20 mg) PO DAILY #10 tabs 01/02/24 Allergies Allergy/AdvReac Type Severity Reaction Status Date / Time No Known Allergies Allergy Verified 01/02/24 06:19 Review of Systems 2 Review of Systems: As per HPI. Yes all other systems are reviewed and are negative Constitutional: Constitutional: Reports as per HPI [facility] Past Medical History Medical History Surgical History H/O hand surgery S/P foot surgery, left Family History Family History Father No problems noted. Mother No problems noted. Social History Social History Alcohol intake: current Alcohol intake frequency: a few times a month Patient Tobacco Use Status: Never used Tobacco Smoked in Last 30 Days: No Use of substances other than those prescribed or required for medical reasons: Yes Substance Use Type: Marijuana Substance Use Frequency: Chronic Longstanding Last Used Substance: Days (ago) Advance Directives: No Advance Directives Information Provided: Yes Patient : No Current occupational status: employed Current occupation: warehouse, right handed Physical Exam ED Vital Signs: Vital Signs - 24 hr 01/02/24 06:18 01/02/24 07:10 01/02/24 07:33 Temperature 98.7 F Pulse Rate 136 H 87 85 Respiratory Rate 92 H 14 21 H Blood Pressure 137/76 120/78 Pulse Oximetry 93 92 Oxygen Delivery Method Room Air Room Air 01/02/24 08:35 01/02/24 09:07 01/02/24 09:21 Temperature Pulse Rate 143 H 162 H 156 H Respiratory Rate 21 H 17 17 Blood Pressure 109/50 L 118/51 L Pulse Oximetry 96 94 Oxygen Delivery Method Room Air Room Air 01/02/24 10:07 01/02/24 12:00 01/02/24 14:06 Temperature 99.0 F Pulse Rate 146 H 133 H 115 H Respiratory Rate 16 19 20 Blood Pressure 105/84 114/58 L 122/63 Pulse Oximetry 94 92 98 Oxygen Delivery Method Room Air Room Air Room Air 01/02/24 14:11 Temperature 982 F H Pulse Rate 114 H Respiratory Rate 19 Blood Pressure 122/63 Pulse Oximetry 92 Oxygen Delivery Method Room Air BMI result Body Mass Index 21.9 Vital signs have been reviewed and appear to be correct. Blood pressure normal. Heart rate tachycardic initially, now normal without intervention. Respiratory rate normal, initial RR of 92 likely entered in error. Temperature normal. Oxygen saturation normal. Const General: cooperative, healthy appearing and no acute distress Orientation/consciousness: oriented to person, oriented to place, oriented to time and patient oriented x3 Limitations: no limitations HENMT Head: Yes normocephalic and Yes atraumatic Ears: external ears normal General nose exam: Normal external nose present Face and sinus: Yes face symmetric Mouth: oropharynx normal and moist mucous membranes Throat: Yes uvula midline Eyes Pupils: Equal, round and reactive pupils present Neck Neck: Yes normal visual inspection and Yes supple Resp Effort & Inspection: normal respiratory effort and able to speak in complete sentences Auscultation: wheezes expiratory wheezes, inspiratory wheezes and throughout Cardio Rate: regular rate Rhythm: regular rhythm Heart sounds: S1 normal heart sound present and S2 normal heart sound present GI Palpation (GI): Soft to palpation and nontender Auscultation: normoactive bowel sounds General: Yes no CVA tenderness Back/Spine/Pelvis Back: no CVA tenderness Skin General skin exam: elasticity normal and turgor normal Neuro General: oriented to person, oriented to place, oriented to time, patient oriented x3, moves all extremities, no focal motor deficits and CN's II-XI intact bilaterally Cranial nerves: Yes Equal, round and reactive pupils present Cognition (Neuro): normal cognition Extrem General: Yes full ROM, Yes no pedal edema and Yes no calf tenderness Psych Mental Status: mental status grossly normal Affect: normal affect Thought process: Normal thought process present Medications Administered Discontinued Medications Generic Name Dose Route Start Last Admin Trade Name Freq PRN Reason Stop Dose Admin Albuterol Sulfate 5 mg/ 0 mg 01/02/24 07:33 01/02/24 07:42 Albuterol/Ipratropium 3 ml INHALE 01/02/24 07:34 7.5 each ONCE ONE Administration Sodium Chloride 1,000 mls @ 999 mls/hr 01/02/24 06:45 01/02/24 09:01 Ns IV 01/02/24 07:45 Infused .Q1H1M LEATHA Infusion Sodium Chloride 1,000 mls @ 999 mls/hr 01/02/24 09:15 01/02/24 10:20 Ns IV 01/02/24 10:15 Infused .Q1H1M LEATHA Infusion Magnesium Sulfate 2 gm in 50 mls @ 25 mls/hr 01/02/24 09:10 01/02/24 12:12 Magnesium Sulfate/H2o IV 01/02/24 11:09 Infused ONCE ONE Infusion Potassium Chloride 10 meq in 100 mls @ 100 mls/hr 01/02/24 09:11 01/02/24 10:20 Potassium Chloride/H20 IV 01/02/24 10:10 Infused ONCE ONE Infusion Levalbuterol HCl 2.5 mg 01/02/24 08:35 01/02/24 08:39 Levalbuterol Hcl 1.25 Mg/3 Ml Vial.Neb INHALE 01/02/24 08:36 2.5 mg ONCE ONE Administration Methylprednisolone Sodium Succinate 60 mg 01/02/24 08:36 01/02/24 09:11 Methylprednisolone Sod Succ 125 Mg/2 Ml Vial IVPUSH 01/02/24 08:37 60 mg ONCE ONE Administration Ondansetron HCl 4 mg 01/02/24 06:45 01/02/24 07:43 Ondansetron Hcl 4 Mg/2 Ml Vial IVPUSH 01/02/24 06:46 4 mg ONCE ONE Administration Medical Decision Making Medical Decision Making [facility] Narrative: Patient is a 28-year-old female presenting to the emergency department with complaint of shortness of breath, wheezing, cough and fever. On exam patient is awake, A+Ox3, VS WNL, afebrile, normal neurological exam without focal deficits, physical exam findings as above. Given reported symptoms and physical exam findings, initial differential includes viral illness, bronchitis, pneumonia. Labs notable for no leukocytosis, no significant electrolyte abnormalities, no evidence of RAMON. X-ray chest notable for no evidence of pneumonia. My interpretation is in agreement with the radiologist's interpretation. While in the ED patient became tachycardic, EKG obtained which shows prolonged QTc. IV magnesium and potassium ordered. Case discussed with Dr. Grubbs who recommends additional IV fluids as well. D-dimer added which was negative. Repeat EKG shows sinus tachycardia with rate down to 113. Will check troponin on original labs as well as repeat now at 14:30, BNP and repeat electrolytes. Hypokalemia noted on repeat labs, patient continues to be tachycardic in 120- 130s, hypoxic at 92% on room air, and is symptomatic with standing/ambulation. Initial and repeat troponins negative. BNP normal. Feel patient requires inpatient admission. Full respiratory panel ordered. Admission discussed with Jolly Duenas NP. Differential Diagnosis Differential Diagnoses: The differential diagnosis associated with the presentation includes As per [facility] Admission/Observation Consideration of admission/observation: Escalation of care including admission/observation considered Lab Data [facility] Lab Attestation statement: I reviewed the patient's lab results. As per [facility] 01/02/24 06:41 01/02/24 14:29 Labs: Lab Results 01/02/24 01/02/24 01/02/24 Range/Units 06:41 09:44 14:29 WBC 10.6 (4.8-10.8) X10*3/uL RBC 4.65 (4.20-5.50) X10*6/uL Hgb 15.0 (12.0-16.0) g/dl Hct 42.4 (37.0-47.0) % MCV 91.2 (80.0-98.0) fL MCH 32.3 (27.0-33.0) pg MCHC 35.4 H (31.0-35.0) g/dl RDW 12.1 (11.0-16.0) % Plt Count 276 (160-400) X10*3/uL MPV 9.6 (9.4-12.3) fL Immature Gran % (Auto) 0.3 (0.0-0.4) % Neut % (Auto) 71.5 (45-73) % Lymph % (Auto) 15.8 L (20-40) % [place] % (Auto) 6.7 (2-11) % Eos % (Auto) 4.9 H (0-4) % Baso % (Auto) 0.8 (0-2) % Lymph # (Auto) 1.7 (1.2-4.9) X10*3/uL [place] # (Auto) 0.7 (0.1-1.2) X10*3/uL Eos # (Auto) 0.5 H (0.0-0.4) X10*3/uL Baso # (Auto) 0.1 (0.0-0.2) X10*3/uL Abs Immat Gran (auto) 0.03 (0.00-0.03) X10*3/uL Absolute Neuts (auto) 7.6 (2.0-8.3) x10*3/uL Absolute Nucleated RBC 0.000 (0.0-0.012) X10*3/uL Nucleated RBC % (auto) 0.0 (0.0-0.2) /100WBC D-Dimer High Sensitivty < 150 NG/ML Sodium 143 143 (135-145) mmol/L Potassium 3.6 3.2 L (3.3-5.1) mmol/L Chloride 110 H 114 H (96-108) mmol/L Carbon Dioxide 22 19 L (22-29) mmol/L Anion Gap 15 13 (12-20) BUN 7 L 5 L (9-16) mg/dL Creatinine 0.70 0.65 (0.5-1.4) mg/dL Estim Creat Clear Calc 106.7 114.8 Estimated GFR > 60 > 60 Random Glucose 99 154 H (60-115) mg/dL Lactic Acid 1.2 (0.5-2.0) mmol/L Calcium 10.1 8.8 D (8.4-10.2) mg/dL Magnesium 1.9 2.2 (1.6-2.6) mg/dL Total Bilirubin 0.5 (0.0-1.0) mg/dL AST 15 (5-31) U/L ALT 12 (0-31) U/L Alkaline Phosphatase 96 (39-117) U/L Troponin I High Sens < 2.7 4.1 D (<3.5-17.0) ng/L B-Natriuretic Peptide 78 (<100) pg/mL Total Protein 8.2 H (6.5-8.0) g/dL Albumin 5.0 (3.5-5.0) g/dL Beta HCG, Quant < 2 mIU/mL Independent Interpretation I performed an independent interpretation of an: EKG (sinus tachycardia, rate 158, normal IN interval, prolonged QTc of 505ms) and Plain X-Ray Interpretation: No evidence of pneumonia on chest x-ray Radiology Impression Discussion of test interpretation with radiology: I have reviewed the radiologist's reading. Radiologist Impression: XR/XR chest 2V IMPRESSION: No active disease. External Record Review External record reviewed: Inpatient record, Office record and Outpatient record Prescription Management I considered prescription management with: Antibiotic and Other Discharge Plan Discharge Clinical Impression: Bronchitis, URI (upper respiratory infection), Hypoxia, Acute hypokalemia Patient Disposition: Admitted As Inpatient Print Language: Turkish
[2024-01-02 06:50] LABS: Basophils Absolute Auto 0.1 X10*3/uL (0.0-0.2); Basophils Percent Auto 0.8 % (0-2); Eosinophils Absolute Auto 0.5 X10*3/uL (0.0-0.4); Eosinophils Percent Auto 4.9 % (0-4); Hematocrit 42.4 % (37.0-47.0); Imm Gran Abs Auto 0.03 X10*3/uL (0.00-0.03); Imm Gran Pct Auto 0.3 % (0.0-0.4); Lymphocytes Absolute Auto 1.7 X10*3/uL (1.2-4.9); Lymphocytes Percent Auto 15.8 % (20-40); MANUAL DIFF FLAG NO; Mean Corpuscular HGB Conc 35.4 g/dl (31.0-35.0); Mean Corpuscular Hemoglobin 32.3 pg (27.0-33.0); Mean Corpuscular Volume 91.2 fL (80.0-98.0); Mean Platelet Volume 9.6 fL (9.4-12.3); Monocytes Absolute Auto 0.7 X10*3/uL (0.1-1.2); Monocytes Percent Auto 6.7 % (2-11); Neutrophils Absolute Auto 7.6 x10*3/uL (2.0-8.3); Neutrophils Percent Auto 71.5 % (45-73); Platelet Count 276 X10*3/uL (160-400); Red Blood Count 4.65 X10*6/uL (4.20-5.50); Red Cell Distribution Width 12.1 % (11.0-16.0); White Blood Count 10.6 X10*3/uL (4.8-10.8)
--- NOTE | 2024-01-02 06:51 | PC.NURSE ---
this rn assumed care of pt, pt brought in from waiting room in wheelchair. pt a&ox4, respirations even and unlabored, vss. pt reports productive cough and nasal congestion x3 weeks. pt reports occasional dizziness/sob with coughing exertion. pt denies chest pain at this time. pt reports cough and nasal congestion produces 'greenish-yellow' sputum. bilateral lung bases noted to have inspiratory wheezes. pt noted to be diaphoretic. pt is a chronic marijuana user. unable to obtain IV access at this time d/t patient anxiety and emesis. provider aware
--- NOTE | 2024-01-02 07:00 | PC.NURSE ---
Report taken from Nancy Whalen RN
[2024-01-02 07:02] LABS: Lactic Acid 1.2 mmol/L (0.5-2.0)
[2024-01-02 07:07] LABS: Alanine Aminotransferase 12 U/L (0-31); Alkaline Phosphatase 96 U/L (39-117); Anion Gap 15 (12-20); Aspartate Amino Transferase 15 U/L (5-31); Bilirubin Total 0.5 mg/dL (0.0-1.0); Blood Urea Nitrogen 7 mg/dL (9-16); Calcium 10.1 mg/dL (8.4-10.2); Carbon Dioxide 22 mmol/L (22-29); Chloride 110 mmol/L (96-108); Creatinine Clr Calc Pharmacy 106.7; Estimated Glomerular Filt Rate > 60; Glucose Random 99 mg/dL (60-115); Potassium 3.6 mmol/L (3.3-5.1); Sodium 143 mmol/L (135-145); Total Protein 8.2 g/dL (6.5-8.0)
--- NOTE | 2024-01-02 07:40 | PC.NURSE ---
20G inserted to LAC. Tolerated well. Good blood return.
[2024-01-02] MEDS: Albuterol Sulfate 5 MG, Albuterol/Iprat 2.5/0.5MG 3 ML 3 ML INHALE (07:42)
[2024-01-02] MEDS: 0.9 % Sodium Chloride 1,000 ML 999 ML IV ×2 (07:42→09:11)
[2024-01-02] MEDS: ondansetron HCL 4 MG/2 ML VIAL IVPUSH (07:43)
[2024-01-02 08:06] LABS: HCG Quantitative < 2 mIU/mL
[2024-01-02] MEDS: levalbuterol HCL 1.25 MG/3 ML VIAL.NEB 2.5 MG INHALE (08:39)
--- NOTE | 2024-01-02 09:03 | ECG_ITS ---
Test Reason : tachycardia Blood Pressure : / mmHG Vent. Rate : 158 BPM Atrial Rate : 158 BPM P-R Int : 128 ms QRS Dur : 080 ms QT Int : 312 ms P-R-T Axes : 081 073 070 degrees QTc Int : 505 ms Sinus tachycardia Nonspecific ST and T wave abnormality Abnormal ECG When compared with ECG of 14-MAR-2023 16:49, Vent. rate has increased BY [address] now depressed in Anterior leads Referred By: Risa Valles Electronically Signed By:MARIJA EATON MD
--- NOTE | 2024-01-02 09:06 | PC.NURSE ---
Pt.'s HR in 160s s/p breathing treatment. Per PA, EKG ordered and additional liter of fluids ordered
--- NOTE | 2024-01-02 09:06 | PC.NURSE ---
Per PA, still give Solu-Medrol as ordered although HR is elevated
[2024-01-02] MEDS: methylPREDNISolone Sod Succ 125 MG/2 ML VIAL 60 MG IVPUSH (09:11)
[2024-01-02] MEDS: Magnesium Sulfate/H2O 2 GM/50 ML PIGGYBACK IV (09:11)
[2024-01-02] MEDS: Potassium Chloride/H20 10 MEQ/100 ML PIGGYBACK 100 MEQ IV (09:15)
[2024-01-02 09:32] LABS: Magnesium 1.9 mg/dL (1.6-2.6)
[2024-01-02 10:06] LABS: D Dimer High Sensitivity < 150 NG/ML
--- NOTE | 2024-01-02 14:05 | ECG_ITS ---
Test Reason : ELEVATED HEART RHYTHM Blood Pressure : / mmHG Vent. Rate : 113 BPM Atrial Rate : 113 BPM P-R Int : 140 ms QRS Dur : 080 ms QT Int : 330 ms P-R-T Axes : 077 061 049 degrees QTc Int : 452 ms Sinus tachycardia Nonspecific ST depression Otherwise normal ECG When compared with ECG of 02-JAN-2024 09:01, ST no longer depressed in Anterior leads Referred By: Risa Valles Electronically Signed By:MARIJA EATON MD
[2024-01-02 14:42] LABS: Troponin-I High Sensitivity < 2.7 ng/L (<3.5-17.0)
[2024-01-02 14:54] LABS: Anion Gap 13 (12-20); Blood Urea Nitrogen 5 mg/dL (9-16); Calcium 8.8 mg/dL (8.4-10.2); Carbon Dioxide 19 mmol/L (22-29); Chloride 114 mmol/L (96-108); Creatinine Clr Calc Pharmacy 114.8; Estimated Glomerular Filt Rate > 60; Glucose Random 154 mg/dL (60-115); Magnesium 2.2 mg/dL (1.6-2.6); Potassium 3.2 mmol/L (3.3-5.1); Sodium 143 mmol/L (135-145)
[2024-01-02 14:58] LABS: Troponin-I High Sensitivity 4.1 ng/L (<3.5-17.0)
[2024-01-02 14:59] LABS: B Type Natriuretic Peptide 78 pg/mL (<100)
--- NOTE | 2024-01-02 16:25 | MHC.EDTECH ---
SARS/FLU/RSV as well as resp pathogen panel ordered. Per Nancy Romero RN, just swab patient for SARS/FLU/RSV.
[2024-01-02 16:39] LABS: Influenza A PCR NEGATIVE (Negative); Influenza B PCR NEGATIVE (Negative); Resp Syncy Virus RNA Qual PCR NEGATIVE (Negative); SARS COV2 PCR INHOUSE NEGATIVE (Negative)
--- NOTE | 2024-01-02 17:25 | PHA.MEDREC ---
Addendum entered by Alo Ontiveros RPh 01/02/24 17:29: Med rec reviewed Original Note: Pharmacy Consult ? Medication Reconciliation Pharmacy has completed the medication reconciliation.
--- NOTE | 2024-01-02 18:14 | PC.NURSE ---
PA aware of d/c VS
== END 2024-01-02 18:15 | disposition home or self-care (01) ==
PROVIDERS: Emergency Medicine; Registered Nurse Emergency; Emergency Provider Emergency Medicine
DX: J40 Bronchitis, not specified as acute or chronic (principal); R06.02 Shortness of breath; R09.02 Hypoxemia; R05.9 Cough, unspecified; R50.9 Fever, unspecified; R51.9 Headache, unspecified; E87.6 Hypokalemia; R11.2 Nausea with vomiting, unspecified; R10.2 Pelvic and perineal pain; Z03.818 Encounter for observation for suspected exposure to other biological agents ruled out; Z79.899 Other long term (current) drug therapy
CPT/HCPCS: 0241U; 36415; 71046; 80048; 80053; 83605; 83735; 83880; 84484; 84702; 85025; 85379; 87040; 93005; 94640; 96361; 96365; 96366; 96375; 99285; J2405; J2919; J3475; J3480

== ENCOUNTER → 2024-01-02 09:03 | Outpatient (BNV) | payer SELFPAY | PROVIDERS: Emergency Provider Emergency Medicine; Visit Provider Internal Medicine Cardiovascular Disease | DX: R00.0 Tachycardia, unspecified (principal) | CPT/HCPCS: 93010 ==